=== PATIENT | male | born 1955 | race Caucasian/White ===

== ENCOUNTER 2017-03-24 09:49 | Emergency (ER) | payer BC ==
[~2017-03-24] VITALS: Ht 185.4 cm; Wt 124.7 kg
[~2017-03-24 09:49] MED LIST: ASPI-482 PO; ASPI81TA2; ATEN25TA; ATOR40TA59; BUPR300T3 PO; BUPR300T4; CEFD300C PO; DICL100T PO; DICL100T2; ESCI10TA; ESCI20TA10 PO; LEVO50TA5; LISI-334 PO; LISI-338; LISI10TA2 PO; METF500T4; METH4TAB6 PO; MULT-208 PO; SAXA5TAB PO; TAMS0.4C97 PO; TICA90TA PO; VENTOLIN HFA18 GM INH
[2017-03-24] MEDS ORDERED: NAPROXEN 500 MG TABLET PO STA (10:05)
[2017-03-24 10:14] VITALS: BP 173/81
[2017-03-24] MEDS ORDERED: DIPHTH,PERTUSS(ACELL),TET TOX 0.5 ML DISP.SYRIN. VAX IM ONE (10:15)
--- NOTE | 2017-03-24 10:27 | PHYS DOC ---
Past Medical History Past Medical History: Diabetes-Type II, High Cholesterol, Hypertension, Hypothyroid, [place] Past Surgical History: Knee Replacement, Other Additional Past Surgical Histo: hernia repair, cardiac stent 2013, carpal tunnel Additional Information: 1 ppd Alcohol Use: None Drug Use: None Adult General Chief Complaint Chief Complaint: THUMB HPI HPI Patient is a 61 year old male with history of hypertension, high cholesterol, diabetes type 2, who presents today with moderate left thumb pain that began today after he smashed his thumb with a sledge hummer, accidentally. Patient states he is a smoker. Review of Systems Review of Systems Constitutional: Denies fever or chills [] Eyes: Denies change in visual acuity, redness, or eye pain [] : Denies dysuria or hematuria [] Musculoskeletal: Left thumb injury Integument: Denies rash or skin lesions [] Neurologic: Denies headache, focal weakness or sensory changes [] Endocrine: Denies polyuria or polydipsia [] Current Medications Current Medications Current Medications Medications (Trade) Dose Ordered Sig/Geoffrey Start Time Stop Time Status Last Admin Dose Admin Diphtheria/ Tetanus/Acell Pertussis (Boostrix) 0.5 ml ONCE ONCE 03/24/17 10:15 03/24/17 10:16 DC 03/24/17 10:25 0.5 ML Naproxen (Naprosyn) 500 mg 1X STAT 03/24/17 10:05 03/24/17 10:07 DC 03/24/17 10:26 500 MG Neomycin/ Polymyxin/ Bacitracin (Triple Antibiotic Ointment) 1 pkt 1X ONCE 03/24/17 11:15 03/24/17 11:16 Allergies Allergies Allergies Coded Allergies Type Severity Reaction Last Updated Verified sitagliptin Allergy Intermediate Hives 11/10/16 Yes Physical Exam Physical Exam Constitutional: Well developed, well nourished, no acute distress, non-toxic appearance. [] HENT: Normocephalic, atraumatic, bilateral external ears normal, oropharynx moist, no oral exudates, nose normal. [] Eyes: PERRLA, EOMI, conjunctiva normal, no discharge. [] Skin: See extremity Back: No tenderness, no CVA tenderness. [] Extremities: Left lateral mid thumb with a skin flap laceration approximately 3 x 2 cm, there is no obvious tendon involvement. Full range of motion to the left thumb. Patient able to flex and extend the left thumb with no difficulties. +2 left radial pulse. Cap refill less than 2 seconds the left upper extremity. Sensation intact to the left upper extremity. Adequate radial sensation to the left thumb. Neurologic: Alert and oriented X 3, normal motor function, normal sensory function, no focal deficits noted. [] Psychologic: Affect normal, judgement normal, mood normal. [] Current Patient Data Vital Signs Vital Signs Date Time Temp Pulse Resp B/P (MAP) Pulse Ox O2 Delivery O2 Flow Rate FiO2 03/24/17 10:14 97.8 80 14 97 Room Air 97.8 EKG EKG [] Radiology/Procedures Radiology/Procedures []PROCEDURE: FINGER(S) LEFT Indication: Injury to the left thumb with a hammer. Time of exam 10:15 AM 3 views of the left thumb were obtained. The alignment is normal. There appears to be an ununited osteophyte at the interphalangeal joint. No fracture is seen. The phalanges and visualized first metacarpal are intact. Impression: No acute bony abnormality is detected. DICTATED and SIGNED BY: MIRZA BARRAZA MD DATE: 03/24/17 1024 CC: TANO GOOD APRN; DONTA VAN APRN; NON,STAFF ~ Course & Med Decision Making Course & Med Decision Making Pertinent Labs and Imaging studies reviewed. (See chart for details) Patient has left thumb contusion after hitting his thumb with a sledgehammer. Left thumb x-rays interpreted by radiologist are negative for any acute findings. There is a superficial laceration on the thumb from the injury that does not need stitches. He was given tetanus in the ED. Instructed to keep the area clean and dry. Neosporin recommended to the area. Provided return precautions. He is a smoker we encouraged him to consider smoking cessation. Dragon Disclaimer Dragon Disclaimer This electronic medical record was generated, in whole or in part, using a voice recognition dictation system. Departure Departure Impression: Primary Impression: Contusion of left thumb Additional Impressions: Laceration of left thumb Smoking addiction Disposition: 01 HOME, SELF-CARE Condition: STABLE Referrals: TANO GOOD APRN (PCP) Follow-up with your own doctor in 1-2 weeks. Patient Instructions: Contusion, Fingertip Laceration, Smoking Cessation, Smoking, You Can Quit, [id number] Additional Instructions: You were seen for left thumb contusion with a laceration on the thumb, your left thumb x-rays interpreted by radiologist are negative for any acute findings. Keep the laceration site clean and dry. Apply Neosporin to it twice a day. Monitor it for signs and symptoms of infection including increased redness warmth or odor drainage from the area and return to the ED if they occur. Follow -up with your own doctor in 1-2 weeks as needed. Consider smoking cessation. Problem Qualifiers Primary Impression: Contusion of left thumb Encounter type: initial encounter Damage to nail status: without damage Qualified Codes: S60.012A - Contusion of left thumb without damage to nail, initial encounter Additional Impressions: Laceration of left thumb Encounter type: initial encounter Qualified Codes: S61.012A - Laceration without foreign body of left thumb without damage to nail, initial encounter DONTA VAN APRN March 24, 2017 10:27
[2017-03-24] MEDS ORDERED: NEOMY/BACITR/POLYMYXIN OINT PACKET. TP ONE ×2 (10:56→11:15)
== END 2017-03-24 11:09 | disposition home or self-care (01) ==
LOC: ER 09:49
DX: S61.012A Laceration without foreign body of left thumb without damage to nail, initial encounter (principal); F17.200 Nicotine dependence, unspecified, uncomplicated; I10 Essential (primary) hypertension; E78.00 Pure hypercholesterolemia, unspecified; E11.9 Type 2 diabetes mellitus without complications; E03.9 Hypothyroidism, unspecified; Z95.5 Presence of coronary angioplasty implant and graft; Z88.8 Allergy status to other drugs, medicaments and biological substances; W23.0XXA Caught, crushed, jammed, or pinched between moving objects, initial encounter; Y93.89 Activity, other specified; Y92.89 Other specified places as the place of occurrence of the external cause; Y99.8 Other external cause status
CPT/HCPCS: 73140; 90471; 90715; 99284-25

== ENCOUNTER 2017-09-30 19:56 | Emergency (ER) | payer BC ==
[~2017-09-30] VITALS: Ht 185.4 cm; Wt 124.7 kg
[~2017-09-30 19:56] MED LIST changes: +ASPI-630; -ASPI81TA2; -DICL100T2; +DICL100T4; -ESCI10TA; -ESCI20TA10 PO; +ESCITALOPRAM OX10 MG; +LEXAPRO20 MG PO
[2017-09-30] MEDS ORDERED: FAMOTIDINE 20 MG/2 ML VIAL IVP ONE (20:45)
[2017-09-30] MEDS ORDERED: ONDANSETRON PF 4 MG/2 ML VIAL. IV ONE (20:45)
[2017-09-30] MEDS ORDERED: diphenhydrAMINE 50 MG/ML VIAL IVP ONE (20:45)
[2017-09-30] MEDS ORDERED: methylPREDNISolone SOD SUCC PF 125 MG/2 ML VIAL. IV ONE (20:45)
[2017-09-30 22:04] VITALS: BP 168/80
[2017-09-30] MEDS ORDERED: FAMO-63 PO (22:24)
[2017-09-30] MEDS ORDERED: PRED50TA PO (22:24)
--- NOTE | 2017-09-30 22:24 | PHYS DOC ---
Past Medical History Past Medical History: Diabetes-Type II, High Cholesterol, Hypertension, Hypothyroid, [place] Past Surgical History: Knee Replacement, Other Additional Past Surgical Histo: hernia repair, cardiac stent 2013, carpal tunnel Alcohol Use: None Drug Use: None Adult General Chief Complaint Chief Complaint: ALLERGIC REACTION HPI HPI 62-year-old male now presents to the emergency department after an evolving itching and hives. Patient handled some curtains that he has never touched before. He states these were very edi. He is a smoker but has never been formally diagnosed with COPD. Patient states he had no difficulty swallowing or voice changes but he didn't perceive that he was having some breathing issues. EMS gave him IM epinephrine and other than the hives and itching he's been asymptomatic since. No dizziness or near syncope. Review of Systems Review of Systems Constitutional: Denies fever or chills [] Eyes: Denies change in visual acuity, redness, or eye pain [] HENT: Denies nasal congestion or sore throat [] Respiratory: Denies cough or shortness of breath [] Cardiovascular: No additional information not addressed in HPI [] GI: Denies abdominal pain, nausea, vomiting, bloody stools or diarrhea [] : Denies dysuria or hematuria [] Musculoskeletal: Denies back pain or joint pain [] Integument: Denies rash or skin lesions [] Neurologic: Denies headache, focal weakness or sensory changes [] Endocrine: Denies polyuria or polydipsia [] All other systems were reviewed and found to be within normal limits, except as documented in this note. Current Medications Current Medications Current Medications Medications (Trade) Dose Ordered Sig/Geoffrey Start Time Stop Time Status Last Admin Dose Admin Diphenhydramine HCl (Benadryl) 25 mg 1X ONCE 09/30/17 20:45 09/30/17 20:46 DC 09/30/17 20:44 25 MG Famotidine (Pepcid Vial) 20 mg 1X ONCE 09/30/17 20:45 09/30/17 20:46 DC 09/30/17 20:43 20 MG Methylprednisolone Sodium Succinate (SOLU-Medrol 125MG VIAL) 125 mg 1X ONCE 09/30/17 20:45 09/30/17 20:46 DC 09/30/17 20:43 125 MG Ondansetron HCl (Zofran) 4 mg 1X ONCE 09/30/17 20:45 09/30/17 20:46 DC 09/30/17 20:43 4 MG Allergies Allergies Allergies Coded Allergies Type Severity Reaction Last Updated Verified sitagliptin Allergy Intermediate Hives 11/10/16 Yes Physical Exam Physical Exam Exophoria male no acute distress. He does have diffuse urticaria. Normal voice no stridor normal intraoral exam and oropharynx. No angioedema or soft tissue swelling. Clear lungs regular rate and rhythm no wheezing rales rubs or rhonchi. Remainder of exam is completely benign Constitutional: Well developed, well nourished, no acute distress, non-toxic appearance. [] HENT: Normocephalic, atraumatic, bilateral external ears normal, oropharynx moist, no oral exudates, nose normal. [] Eyes: PERRLA, EOMI, conjunctiva normal, no discharge. [] Neck: Normal range of motion, no tenderness, supple, no stridor. [] Cardiovascular:Heart rate regular rhythm, no murmur [] Lungs & Thorax: Bilateral breath sounds clear to auscultation [] Abdomen: Bowel sounds normal, soft, no tenderness, no masses, no pulsatile masses. [] Skin: Warm, dry, urticaria diffuse as above Back: No tenderness, no CVA tenderness. [] Extremities: No tenderness, no cyanosis, no clubbing, ROM intact, no edema. [] Neurologic: Alert and oriented X 3, normal motor function, normal sensory function, no focal deficits noted. [] Psychologic: Affect normal, judgement normal, mood normal. [] Current Patient Data Vital Signs Vital Signs Date Time Temp Pulse Resp B/P (MAP) Pulse Ox O2 Delivery O2 Flow Rate FiO2 09/30/17 22:04 70 18 168/80 (109) 95 Room Air 09/30/17 20:00 97.4 97.4 EKG EKG [] Radiology/Procedures Radiology/Procedures [] Course & Med Decision Making Course & Med Decision Making Pertinent Labs and Imaging studies reviewed. (See chart for details) Signs and symptoms consistent with generalized allergic reaction with urticaria and acute pruritus. Patient had questionable mild pulmonary symptoms for which she was given IM epi after which she was asymptomatic. He is a smoker and I suspect a possible contributory anxiety component manifesting in those mild symptoms, however there does exist the possibility of extremely mild anaphylaxis. Patient with no respiratory or airway symptoms in the emergency department during two-hour observation period he remained stable and his urticaria resolved. He is asymptomatic on reevaluation and feels well. Prescription for prednisone Linda. Patient aware to finish this as prescribed and take Benadryl and Pepcid as needed no further workup or treatment indicated patient agrees that outpatient follow-up and strict return precautions given.[] Dragon Disclaimer Dragon Disclaimer This electronic medical record was generated, in whole or in part, using a voice recognition dictation system. Departure Departure Impression: Primary Impression: Allergic reaction Additional Impression: Urticaria Disposition: HOME, SELF-CARE Condition: IMPROVED Referrals: TANO GOOD APRN (PCP) Patient Instructions: Hives Additional Instructions: It appears that you've had an allergic reaction to some component of the curtain she were handling or dust or other material which was in the fabric. You 've experienced hives as a result of your allergic reaction. Take Benadryl 50 mg every 4-6 hours well as Pepcid 20 mg twice a day as needed for rash or itching. Finish prednisone once a day for 5 more days starting tomorrow as prescribed. Follow-up with your doctor tomorrow for reevaluation and return immediately for new severe worsening symptoms, especially for symptoms of allergic reaction with airway involvement.. Discuss with your doctor whether or not to arrange outpatient allergy testing after your symptoms have resolved. Scripts Prednisone (PREDNISONE) 50 Mg Tablet 1 TAB PO DAILY, #5 TAB Prov: GAURAV CHRISTIAN MD 09/30/17 Famotidine (PEPCID) 20 Mg Tablet 20 MG PO BID Y for ALLERGIES, #14 TAB Prov: GAURAV CHRISTIAN MD 09/30/17 Problem Qualifiers GAURAV CHRISTIAN MD Sep 30, 2017 22:24
== END 2017-09-30 22:30 | disposition home or self-care (01) ==
LOC: ER 19:56
DX: T78.40XA Allergy, unspecified, initial encounter (principal); L50.9 Urticaria, unspecified; E11.9 Type 2 diabetes mellitus without complications; E03.9 Hypothyroidism, unspecified; E78.00 Pure hypercholesterolemia, unspecified; I10 Essential (primary) hypertension; Z95.5 Presence of coronary angioplasty implant and graft; Z88.8 Allergy status to other drugs, medicaments and biological substances; X58.XXXA Exposure to other specified factors, initial encounter
CPT/HCPCS: 96374; 96375; 99284; J1200; J2405; J2930; S0028

== ENCOUNTER → 2017-11-22 | Day surgery (SDC) | payer BC ==
[~2017-11-22] MED LIST changes: -ASPI-482 PO; -ASPI-630; -ATEN25TA; -ATOR40TA59; -BUPR300T3 PO; -BUPR300T4; -CEFD300C PO; -DICL100T PO; -DICL100T4; -ESCITALOPRAM OX10 MG; +HYDROmorphone 2 MG/ML VIAL IV; -LEVO50TA5; -LEXAPRO20 MG PO; +LIDOCAINE 1% PF 2 ML VIAL. ID; +LIDOCAINE 2% PF Vial for OR 5 ML VIAL.; -LISI-334 PO; -LISI-338; -LISI10TA2 PO; -METF500T4; -METH4TAB6 PO; +MIDAZOLAM HCL/PF 2 MG/2 ML VIAL.; +MORPHINE SULFATE 2 MG/ML DISP.SYRIN. IV; -MULT-208 PO; +ONDANSETRON PF 4 MG/2 ML VIAL.; +PROCHLORPERAZINE 10 MG/2 ML VIAL. IV; +PROPOFOL 20 ML IV; -SAXA5TAB PO; -TAMS0.4C97 PO; -TICA90TA PO; -VENTOLIN HFA18 GM INH; +fentaNYL PF VIAL 100 MCG/2 ML VIAL; +fentaNYL PF VIAL 100 MCG/2 ML VIAL IV
[2017-11-22 09:11] LABS: POC GLUCOSE 201 mg/dL (70-99)
[2017-11-22] MEDS: IV RINGERS,LACTATED 1000ML 1,000 ML IV (09:13)
[2017-11-22] MEDS: oxyCODONE/APAP 7.5/325 1 TAB TABLET PO (11:53)
[2017-11-22] MEDS: BUPIVACAINE MPF 0.5% 30 ML VIAL. (12:35)
== END | disposition home or self-care (01) ==
LOC: SURG 08:19
DX: L72.3 Sebaceous cyst (principal); E11.9 Type 2 diabetes mellitus without complications; I25.10 Atherosclerotic heart disease of native coronary artery without angina pectoris; E78.00 Pure hypercholesterolemia, unspecified; I10 Essential (primary) hypertension; E03.9 Hypothyroidism, unspecified; F32.9 Major depressive disorder, single episode, unspecified; Z87.39 Personal history of other diseases of the musculoskeletal system and connective tissue; Z86.39 Personal history of other endocrine, nutritional and metabolic disease; Z88.8 Allergy status to other drugs, medicaments and biological substances; Z72.0 Tobacco use
CPT/HCPCS: 11404; 82962; 87071; 87075; 87205; 88304; C1769; J0690; J2250; J2405; J2704; J3010; J3490

== ENCOUNTER → 2018-02-10 | Outpatient (CLI) | payer BC ==
[~2018-02-10] MED LIST changes: -HYDROmorphone 2 MG/ML VIAL IV; +IOHEXOL 240 MG/ML 50ML VIAL. PO; -LIDOCAINE 1% PF 2 ML VIAL. ID; -LIDOCAINE 2% PF Vial for OR 5 ML VIAL.; -MIDAZOLAM HCL/PF 2 MG/2 ML VIAL.; -MORPHINE SULFATE 2 MG/ML DISP.SYRIN. IV; -ONDANSETRON PF 4 MG/2 ML VIAL.; -PROCHLORPERAZINE 10 MG/2 ML VIAL. IV; -PROPOFOL 20 ML IV; -fentaNYL PF VIAL 100 MCG/2 ML VIAL; -fentaNYL PF VIAL 100 MCG/2 ML VIAL IV
[2018-02-10] MEDS: IOHEXOL 300 MG/ML 100ML VIAL. IV (10:20)
== END | disposition home or self-care (01) ==
LOC: CT 09:58
DX: N28.1 Cyst of kidney, acquired (principal)
CPT/HCPCS: 74177; Q9967

== ENCOUNTER → 2018-02-28 | Outpatient (CLI) | payer BC | END | disposition home or self-care (01) | LOC: US 13:46 | DX: I10 Essential (primary) hypertension (principal); N28.1 Cyst of kidney, acquired; I70.293 Other atherosclerosis of native arteries of extremities, bilateral legs | CPT/HCPCS: 76770; 93925 ==

== ENCOUNTER → 2018-06-09 | Outpatient (CLI) | payer BC | END | disposition home or self-care (01) | LOC: ECHO 10:37 | DX: I25.10 Atherosclerotic heart disease of native coronary artery without angina pectoris (principal); I51.7 Cardiomegaly; I10 Essential (primary) hypertension; E11.9 Type 2 diabetes mellitus without complications; E78.00 Pure hypercholesterolemia, unspecified; E03.9 Hypothyroidism, unspecified; Z87.891 Personal history of nicotine dependence; Z79.899 Other long term (current) drug therapy | CPT/HCPCS: 93306 ==

== ENCOUNTER → 2019-12-19 | Outpatient (CLI) | payer MEDICARE, OTHER ==
[2017-11-22 11:54] VITALS: BP 169/87
[~2019-12-19] MED LIST changes: +ASPI-482 PO; +ASPI-630; +ATEN25TA; +ATOR40TA59; +BUPR300T3 PO; +BUPR300T92; +CEFD300C PO; +DICL100T PO; +DICL100T68; +DOCU50CA9 PO; +ESCITALOPRAM OX10 MG; +FAMO-63 PO; -IOHEXOL 240 MG/ML 50ML VIAL. PO; +LEVO50TA5; +LEXAPRO20 MG PO; +LISI-334 PO; +LISI-338; +LISI10TA2 PO; +METF500T16; +METH4TAB6 PO; +MULT-208 PO; +OXYC1TAB19 PO; +PRED50TA PO; +SAXA5TAB PO; +TAMS0.4C97 PO; +TICA90TA PO; +VENTOLIN HFA18 GM INH
--- NOTE | 2019-12-19 17:26 | CARD ---
MR#: [id number] Date of Study: 12/19/2019 Ordering Physician: RUMA CANO, Referring Physician: RUMA CANO, Tech: Ira Nguyen APPROVED REPORT EXAM: Two-dimensional and M-mode echocardiogram with Doppler and color Doppler. Other Information Quality : AverageHR: 77bpm INDICATION Cardiac Disease: CAD RISK FACTORS Hypertension Hyperlipidemia Diabetes Smoking 2D DIMENSIONS RVDd3.2 (2.9-3.5cm)Left Atrium(2D)3.3 (1.6-4.0cm) IVSd1.3 (0.7-1.1cm)Aortic Root(2D)4.0 (2.0-3.7cm) LVDd5.3 (3.9-5.9cm)LVOT Diameter2.5 (1.8-2.4cm) PWd1.3 (0.7-1.1cm)LVDs3.2 (2.5-4.0cm) FS (%) 39.8 %SV94.0 ml LVEF(%)69.9 (>50%) Aortic Valve AoV Peak Mario.125.0cm/sAoV VTI23.5cm AO Peak GR.6.2mmHgLVOT Peak Mario.102.4cm/s AO Mean GR.4mmHgAVA (VMAX)3.98cm2 Mitral Valve MV E Hdknxpbb15.1cm/sMV DECEL [id number] MV A Xiaxxxse34.5cm/sE/A Ratio0.8 Pulmonary Valve PV Peak Cftimyhr99.3cm/s Tricuspid Valve TR P. Stpenyjf463iz/sRAP [id number] TR Peak Gr.46cmFfHJJP70ftHb LEFT VENTRICLE The left ventricle is normal size. There is moderate concentric left ventricular hypertrophy. The lef t ventricular systolic function is normal and the ejection fraction is within normal range. The Eject ion Fraction is 55-60%. There is normal LV segmental wall motion. Transmitral Doppler flow pattern is Grade I-abnormal relaxation pattern. RIGHT VENTRICLE The right ventricle is normal size. There is normal right ventricular wall thickness. The right ventr icular systolic function is normal. ATRIA The left atrium size is normal. The right atrium size is normal. The interatrial septum is intact wit h no evidence for an atrial septal defect or patent foramen ovale as noted on 2-D or Doppler imaging. AORTIC VALVE The aortic valve is normal in structure and function. Doppler and Color Flow revealed no significant aortic regurgitation. There is no significant aortic valvular stenosis. MITRAL VALVE The mitral valve is normal in structure and function. There is no evidence of mitral valve prolapse. There is no mitral valve stenosis. Doppler and Color Flow revealed no mitral valve regurgitation note d. TRICUSPID VALVE The tricuspid valve is normal in structure and function. Doppler and Color Flow revealed trace tricus pid regurgitation. There is no tricuspid valve prolapse or vegetation. There is no tricuspid valve st enosis. PULMONIC VALVE The pulmonic valve is not well visualized. Doppler and Color Flow revealed no pulmonic valvular regur gitation. There is no pulmonic valvular stenosis. GREAT VESSELS The aortic root is normal in size. The ascending aorta is normal in size. The IVC is normal in size a nd collapses >50% with inspiration. PERICARDIAL EFFUSION There is no evidence of significant pericardial effusion. Critical Notification Critical Value: No <Conclusion> The left ventricular systolic function is normal and the ejection fraction is within normal range. Th e Ejection Fraction is 55-60%. There is normal LV segmental wall motion. Signed by : Asael Stevenson, Electronically Approved : 12/19/2019 17:26:36
== END | disposition home or self-care (01) ==
LOC: ECHO 13:37
PROVIDERS: ATTEND Internal Medicine Cardiovascular Disease
DX: I51.7 Cardiomegaly (principal); I25.10 Atherosclerotic heart disease of native coronary artery without angina pectoris
CPT/HCPCS: 93306

== ENCOUNTER → 2020-01-08 | Outpatient (CLI) | payer MEDICARE, OTHER ==
[2017-11-22 11:54] VITALS: BP 169/87
[2020-01-08 08:12] LABS: CHOLESTEROL/HDL RATIO 4.7
--- NOTE | 2020-01-08 12:57 | RAD ---
MR#: [id number] Date of Study: 01/08/2020 Ordering Physician: RUMA CANO, Referring Physician: RUMA CANO, Tech: Alberto Palacio MBA, RDMS, RVT, RDCS, RTR APPROVED REPORT Patient Location: OUT-PATIENT Indications Rest Pain:Bilaterally VELOCITY AND DOPPLER WAVEFORM ANALYSIS RIGHT cm/secWaveformSeverity LEFT cm/secWaveform Severity dCFA 226.0TriphasicdCFA 123.0Triphasic Prof Fem Art. 111.0TriphasicProf Fem Art. 77.0Biphasic Fem Art Prox. 123.0TriphasicFem Art Prox. 131.0Triphasic Fem Art Mid. 127.0TriphasicFem Art Mid. 150.0Triphasic Fem Art Dist. 123.0TriphasicFem Art Dist. 77.0Triphasic Pop Art(Fossa) 80.0TriphasicPop Art(AK) 72.0Triphasic BESSEMER REGULATOR Prox. 113.0TriphasicPTA Prox. 92.0Triphasic BESSEMER REGULATOR Dist. 120.0TriphasicPTA Dist. 111.0Triphasic LAUREN Prox. 175.0TriphasicATA Prox. 87.0Biphasic DPA 54MonophasicDPA 20Monophasic Findings Grayscale images of the bilateral lower extremity arterial vessels demonstrate mild diffuse intimal h yperplasia and calcific plaque. Spectral waveforms are mildly elevated in the right common femoral artery suggestive of a moderate st enosis of approximately less than 50%. Normal velocities are triphasic wave pattern are noted to the popliteal segment. Below the knee the peroneal artery is not visualized and the posterior tibial cristy ry is patent. Probable greater than 50% stenosis involving the anterior tibial artery with monophasic waveforms in the dorsalis pedis vessels. On the left triphasic waveforms are noted from the common femoral artery to the popliteal segment. Be low the knee the peroneal artery is again not visualized with patent posterior tibial and anterior ti bial vessels. There is likely diffuse small vessel disease at the level of the dorsalis pedis artery. Critical Notification Critical Value: No <Conclusion> 1. No critical lower extremity arterial disease noted. Signed by : Asael Stevenson, Electronically Approved : 01/08/2020 12:57:25
== END | disposition home or self-care (01) ==
LOC: US 07:13
PROVIDERS: ATTEND Internal Medicine Cardiovascular Disease
DX: I70.293 Other atherosclerosis of native arteries of extremities, bilateral legs (principal); M89.372 Hypertrophy of bone, left ankle and foot; M89.371 Hypertrophy of bone, right ankle and foot; E78.5 Hyperlipidemia, unspecified
CPT/HCPCS: 36415; 80061; 93925

== ENCOUNTER 2020-11-20 16:01 | Inpatient (IN) | payer MEDICARE, OTHER ==
[~2020-11-20] VITALS: Ht 185.4 cm; Wt 118.9 kg
[~2020-11-20 16:01] MED LIST changes: -LISI-334 PO; -LISI-338; +LISI-517; +LISI10TA16 PO; -LISI10TA2 PO; +LISI20TA18 PO
[2020-11-20 16:22] LABS: BASO # 0.1 x10^3/uL (0.0-0.2); BASO % 1 % (0-3); EOS # 0.3 x10^3/uL (0.0-0.7); EOS % 3 % (0-3); HEMATOCRIT 33.5 % (39.0-53.0); HEMOGLOBIN 11.2 g/dL (13.0-17.5); LYMPH # 1.8 x10^3/uL (1.0-4.8); LYMPH % 17 % (24-48); MEAN CORPUSCULAR HEMOGLOBIN 29 pg (25-35); MEAN CORPUSCULAR HGB CONC 33 g/dL (31-37); MEAN CORPUSCULAR VOLUME 87 fL (79-100); MONO # 0.9 x10^3/uL (0.0-1.1); MONO % 8 % (0-9); NEUT # 7.7 x10^3/uL (1.8-7.7); NEUT % 71 % (31-73); PLATELET COUNT 260 x10^3/uL (140-400); RED BLOOD COUNT 3.86 x10^6/uL (4.30-5.70); RED CELL DISTRIBUTION WIDTH 15.3 % (11.5-14.5); WHITE BLOOD COUNT 10.9 x10^3/uL (4.0-11.0)
--- NOTE | 2020-11-20 16:23 | PHYS DOC ---
Past Medical History Past Medical History: Diabetes-Type II, High Cholesterol, Hypertension, H ypothyroid, VA (YIMI FRAGA RING PACKER) Past Surgical History: Knee Replacement, Other Additional Past Surgical Histo: hernia repair, cardiac stent 2013, carpal tunnel (YIMI FRAGA RING PACKER) Smoking Status: Current Every Day Smoker Alcohol Use: None Drug Use: None (YIMI FRAGA RING PACKER) General Adult EDM: Chief Complaint: UPPER EXTREMITY PAIN HPI: HPI: Patient is a 65 year old male who presents with 1 month of left shoulder pain into the upper arm that he states feels like a " pulling pain" and states that now it has gone down into the arm and sharp shooting into the hand. He states that he is a smoker and has chronic shortness of breath and is no worse than usual. He states he does not have any chest pain. He states he has been out of his metoprolol for the last 3 weeks. Patient's last echo was December 2019 and showed LVH but normal ejection fraction. Patient rates his pain a 2 out of 10. Nothing makes it worse or better. He states that he had injuries to that shoulder and its been out of socket before in the past but does not remember injuring it to cause any of this pain a month ago. Patient states for the last 1 to 2 months he has had dizziness but mostly when he goes to look up. Patient denies increase SOA, abdominal pain, nausea, vomiting, diarrhea, neck pain, back pain, fall, injury, numbness or tingling, focal weakness, vision changes, syncope. He denies any dizziness at this time. Patient does have a history of high cholesterol, diabetes, hypothyroidism, cardiac stents, CAD, VA, COPD, smoking, hypertension. (YIMI FRAGA RING PACKER) Review of Systems: Review of Systems: Constitutional: Denies fever or chills. [] Eyes: Denies change in visual acuity. [] HENT: Denies nasal congestion or sore throat. [] Respiratory: Denies cough or shortness of breath. [] Cardiovascular: Denies chest pain or edema. [] GI: Denies abdominal pain, nausea, vomiting, bloody stools or diarrhea. [] : Denies dysuria. [] Musculoskeletal: Denies back pain. + Left shoulder and arm joint pain. [] Integument: Denies rash. [] Neurologic: Denies headache, focal weakness or sensory changes. [] Endocrine: Denies polyuria or polydipsia. [] Lymphatic: Denies swollen glands. [] Psychiatric: Denies depression or anxiety. [] (YIMI FRAGA RING PACKER) Heart Score: HEART Score for Chest Pain: HEART Score for Chest Pain Response (Comments) Value History Slighlty/Non-Suspicious 0 ECG Nonspecific Repolarizatio 1 Age > 65 2 Risk Factors >3 Risk Factors or Hx CAD 2 Troponin < Normal Limit 0 Total 5 Risk Factors: Risk Factors: DM, Current or recent (<one month) smoker, HTN, HLP, family history of CAD, obesity. Risk Scores: Score 0 - 3: 2.5% MACE over next 6 weeks - Discharge Home Score 4 - 6: 20.3% MACE over next 6 weeks - Admit for Clinical Observation Score 7 - 10: 72.7% MACE over next 6 weeks - Early Invasive Strategies (YIMI FRAGA APRN) Allergies: Allergies: Allergies Coded Allergies Type Severity Reaction Last Updated Verified sitagliptin Allergy Intermediate Hives 11/19/17 Yes (YIMI FRAGA RING PACKER) Physical Exam: PE: Constitutional: Well developed, well nourished, no acute distress, non-toxic keon earance. [] HENT: Normocephalic, atraumatic, bilateral external ears normal, oropharynx moist, no oral exudates, nose normal. [] Eyes: PERRLA, EOMI, conjunctiva normal, no discharge. [] Neck: Normal range of motion, no tenderness, supple, no stridor. [] Cardiovascular:Heart rate regular rhythm, no murmur [] Lungs & Thorax: Bilateral upper breath sounds clear and lower diminished to auscultation [] Abdomen: Bowel sounds normal, soft, no tenderness, no masses, no pulsatile masses. [] Skin: Warm, dry, no erythema, no rash. [] Back: No tenderness, no CVA tenderness. [] Extremities: No tenderness, no cyanosis, no clubbing, ROM intact, no edema. [] Neurologic: Alert and oriented X 3, normal motor function, normal sensory function, no focal deficits noted. [] Psychologic: Affect normal, judgement normal, mood normal. [] (YIMI FRAGA APRN) EKG: EK and read by Dr. Hardin is sinus rhythm and no STEMI (YIMI FRAGA APRN) Radiology/Procedures: Radiology/Procedures: [] Impression: [place] [id number] IMAGING REPORT Signed PATIENT: ENRIQUE GILLESPIE ACCOUNT: [id number] : 1955 LOCATION: ER AGE: 65 SEX: M EXAM STATUS: REG ER ORD. PHYSICIAN: YIMI FRAGA APRN REASON: soa PROCEDURE: PORTABLE CHEST 1V EXAM: Chest, single view; shoulder, 3 views. HISTORY: Pain. Shortness of air. COMPARISON: 01/15/2016. FINDINGS: Chest: A frontal view of the chest is obtained. There is no infiltrate, pleural effusion or pneumothorax. The heart is normal in size. Left shoulder: 3 views of the left shoulder obtained. There is no fracture, dislocation or subluxation. IMPRESSION: No acute pulmonary or osseous finding. Electronically signed by: Rosi Medley MD (11/20/2020 5:13 PM) [id number] DICTATED and SIGNED BY: ROSI MEDLEY MD DATE: 11/20/20 [id number] [place] [id number] [place], [place] [id number] IMAGING REPORT Signed PATIENT: ENRIQUE GILLESPIE ACCOUNT: [id number] : 1955 LOCATION: ER AGE: 65 SEX: M EXAM STATUS: REG ER ORD. PHYSICIAN: YIMI FRAGA APRN REASON: PAIN PROCEDURE: SHOULDER 2+V LEFT EXAM: Chest, single view; shoulder, 3 views. HISTORY: Pain. Shortness of air. COMPARISON: 01/15/2016. FINDINGS: Chest: A frontal view of the chest is obtained. There is no infiltrate, pleural effusion or pneumothorax. The heart is normal in size. Left shoulder: 3 views of the left shoulder obtained. There is no fracture, dislocation or subluxation. IMPRESSION: No acute pulmonary or osseous finding. Electronically signed by: Rosi Medley MD (11/20/2020 5:13 PM) [id number] DICTATED and SIGNED BY: ROSI MEDLEY MD DATE: 11/20/20 [id number] 0 (YIMI FRAGA APRN) Course & Med Decision Making: Course & Med Decision Making Pertinent Labs and Imaging studies reviewed. (See chart for details) See HPI. Nystagmus present. Hypertensive in the 190s over 100s. Slightly tachycardic at 97. Lungs are clear in upper lobes and diminished in lower lobes. Skin pink warm and dry. Alert and oriented x4. Ambulatory with a steady gait. Speaks in full complete sentences. Full range of motion of the left shoulder. There is no joint laxity or deformity. No swelling of the joint. No redness to the joint. No tenderness to the joint. No heat to the joint. Radial pulse strong and present. Cap refill less than 2 seconds. Patient states he did not have this arm pain when he has had his VA in the past. States he sees Dr. Rucker for cardiology and saw him about 4 months ago. I spoke to Dr. Leon for admission. Due to the patient's past medical history and renal insufficiency that is new onset patient will be admitted to the hospital. He can have another echo or further evaluation from cardiology. [] (YIMI FRAGA APRN) Dragon Disclaimer: Dragon Disclaimer: This electronic medical record was generated, in whole or in part, using a voice recognition dictation system. (YIMI FRAGA APRN) Departure Departure Impression: Primary Impression: Left arm pain Additional Impression: Acute renal insufficiency Disposition: ADMITTED INPT THIS HOSP Admitting Physician: GABBI (YIMI FRAGA APRN) Condition: STABLE Referrals: MAYO CUBA (PCP) Attending Signature Attending Signature I have reviewed the PA/GYN PHYSICIAN's note and plan of care. I was available for consultation as needed during the patient's visit in the emergency department. I agree with the clinical impression, plan, and disposition. (GAURAV HARDIN DO) YIMI FRAGA APRN Nov 20, 2020 16:23 GAURAV HARDIN DO Nov 21, 2020 10:18
[2020-11-20 16:36] LABS: PROTHROMBIN TIME PATIENT 12.8 SEC (11.7-14.0)
[2020-11-20 16:43] LABS: CALCIUM 9.7 mg/dL (8.5-10.1); CREATININE 2.1 mg/dL (0.7-1.3); GFR 31.7; POTASSIUM 4.8 mmol/L (3.5-5.1)
[2020-11-20 16:48] LABS: ALBUMIN 3.7 g/dL (3.4-5.0); TOTAL BILIRUBIN 0.4 mg/dL (0.2-1.0); TOTAL PROTEIN 7.4 g/dL (6.4-8.2)
--- NOTE | 2020-11-20 17:16 | RAD ---
EXAM: Chest, single view; shoulder, 3 views. HISTORY: Pain. Shortness of air. COMPARISON: 01/15/2016. FINDINGS: Chest: A frontal view of the chest is obtained. There is no infiltrate, pleural effusion or pneumothorax. The heart is normal in size. Left shoulder: 3 views of the left shoulder obtained. There is no fracture, dislocation or subluxatio n. IMPRESSION: No acute pulmonary or osseous finding. Electronically signed by: Rosi Samaniego MD (11/20/2020 5:13 PM) [id number]
--- NOTE | 2020-11-20 17:24 | EKG ---
[facility] [address] [place] [address] Test Date: 2020-11-20 Test Time: 16:11:11 Pat Name: ENRIQUE GILLESPIE Department: Room: Gender: M Sensitized [employer] Tester: : 1955 Requested By: YIMI FRAGA Order Number: [id number] Reading MD: Measurements Intervals [place] Rate: 97 P: 43 MO: 176 QRS: 12 QRSD: 80 T: 73 QT: 306 QTc: 392 Interpretive Statements SINUS RHYTHM QRS(T) CONTOUR ABNORMALITY CONSIDER ANTEROLATERAL MYOCARDIAL DAMAGE POSSIBLY ABNORMAL ECG RI6.01 No previous ECG available for comparison
[2020-11-20] MEDS ORDERED: IV NORMAL SALINE 1000ML BAG 1,000 ML IV ONE (18:00)
[2020-11-20 18:13] LABS: BARBITURATES NEG (NEG); BENZODIAZEPINES NEG (NEG); CANNABINOIDS NEG (NEG); COCAINE NEG (NEG); METHADONE NEG (NEG); OPIATES NEG (NEG); PHENCYCLIDINE NEG (NEG)
[2020-11-20] MEDS ORDERED: ONDANSETRON PF 4 MG/2 ML VIAL. IV PRN (18:15)
[2020-11-20] MEDS ORDERED: DOCUSATE SODIUM 100 MG CAPSULE. PO PRN (18:15)
[2020-11-20] MEDS ORDERED: ALBUTEROL SULFATE 2.5 MG/3 ML NEBU. NEB PRN (18:15)
[2020-11-20] MEDS ORDERED: LORazepam 0.5 MG TABLET PO PRN (18:15)
[2020-11-20] MEDS ORDERED: guaiFENesin ORAL 200 MG/10 ML LIQUID. PO PRN (18:15)
[2020-11-20] MEDS ORDERED: DEXTROSE 50% 25 GM / 50ML DISP.SYRIN. IV PRN (18:15)
[2020-11-20] MEDS ORDERED: ZOLPIDEM 5 MG TABLET. PO PRN (18:15)
[2020-11-20] MEDS ORDERED: ACETAMINOPHEN 325 MG TABLET. PO PRN (18:15)
[2020-11-20 18:16] LABS: AMPHETAMINE/METHAMPHETAMINE NEG (NEG)
--- NOTE | 2020-11-20 19:07 | PDOC1 ---
History and Physical Date of Admission Date of Admission 11/20/2020 Identification/Chief Complaint Chief Complaint My shoulder hurts Source Source: Chart review, Patient History of Present Illness History of Present Illness Patient is a 65 year old male with past medical history of essential hypertension diabetes type 2 PCI and stent approximately 5 years ago who was in his usual state of health until about a month ago when he started complaining of left shoulder pain. The patient denies any trauma to the affected area the patient denies any recent changes to his activity level no heavy objects have been lifted and he has not engaged in a new exercise program. Patient says that he feels some tingling radiating from his neck down to his arm. Sensation of electric shock, the patient does not refer precordial pain no angina type of symptoms when the pain a flex him he rates it at a 8 out of 10 lasting less than 5 minutes with associated diaphoresis but no sensation of impending doom no nausea no vomiting associated with the symptoms. The other symptom that he also associates with this discomfort is feeling lightheaded especially when going from the sitting position to the up port position. He denies paroxysmal nocturnal dyspnea no orthopnea no peripheral edema no odynophagia no dysphagia no slurred speech no blurred vision no headaches were reported by the patient either. The patient denies any recent travels no neck stiffness no meningeal signs. Serendipitously he was found to have an increased creatinine level reason why he was admitted for observation. The patient has been taking some aspirin and meloxicam at home for this discomfort but it does not sound like he has been abusing the medication. Plan of care has been explained in detail and the laboratory data has been also explained in detail to the patient. All of his concerns were addressed to the best of my abilities His heart score was calculated in the emergency department he has a score of 5 reason why we were asked to admit and rule him out as well and even though he denies any chest discomfort Past Medical History Cardiovascular: CAD, HTN, Hyperlipidemia Endocrine: Diabetes Past Surgical History Past Surgical History: Total knee replacement Family History Family History: No Significant Social History Smoke: No ALCOHOL: none Drugs: None Current Problem List Problem List Problems Medical Problems: (1) Acute renal insufficiency Status: Acute (2) Left arm pain Status: Acute Current Medications Current Medications Current Medications Medications (Trade) Dose Ordered Sig/Geoffrey Start Time Stop Time Status Last Admin Dose Admin Acetaminophen (Tylenol) 650 mg PRN Q4HRS PRN 11/20/20 18:15 Albuterol Sulfate (Ventolin Neb Soln) 2.5 mg RTQID 11/20/20 20:00 Aspirin (Ecotrin) 81 mg DAILY 11/21/20 09:00 Atenolol (Tenormin) 25 mg DAILY 11/21/20 09:00 Atorvastatin Calcium (Lipitor) 40 mg HS 11/20/20 21:00 Bupropion HCl (Wellbutrin Xl) 300 mg DAILY 11/21/20 09:00 Citalopram Hydrobromide (CeleXA) 80 mg DAILY 11/21/20 09:00 Dextrose (Dextrose 50%-Water Syringe) 12.5 gm PRN Q15MIN PRN 11/20/20 18:15 Docusate Sodium (Colace) 100 mg PRN BID PRN 11/20/20 18:15 Enoxaparin Sodium (Lovenox 40mg Syringe) 40 mg Q24H 11/20/20 19:00 Guaifenesin (Robitussin) 200 mg PRN Q4HRS PRN 11/20/20 18:15 Insulin Human Lispro (HumaLOG) 0-7 UNITS TIDWMEALS 11/21/20 08:00 Levothyroxine Sodium (Synthroid) 50 mcg DAILY06 11/21/20 06:00 Lisinopril (Prinivil) 20 mg DAILY 11/21/20 09:00 Lorazepam (Ativan) 0.5 mg PRN Q4HRS PRN 11/20/20 18:15 Multivitamins (Thera M Plus) 1 tab DAILY 11/21/20 09:00 Non-Formulary Medication (Albuterol Sulfate (Ventolin Hfa Inhaler)) 2 puff QID 11/20/20 21:00 11/20/20 18:36 DC Ondansetron HCl (Zofran) 4 mg PRN Q4HRS PRN 11/20/20 18:15 Oxycodone/ Acetaminophen (Percocet 7.5/ 325) 1 tab Q4HRS 11/20/20 20:00 Sodium Chloride 1,000 ml @ 1,000 mls/hr 1X ONCE 11/20/20 18:00 11/20/20 18:59 DC 11/20/20 18:00 1,000 MLS/HR Zolpidem Tartrate (Ambien) 5 mg PRN QHS PRN 11/20/20 18:15 Allergies Allergies Allergies Coded Allergies Type Severity Reaction Last Updated Verified sitagliptin Allergy Intermediate Hives 11/19/17 Yes ROS Review of System CONSTITUTIONAL: No fever or chills EYES: No recent changes SKIN: No rash or itching CARDIOVASCULAR: No chest pain, syncope, palpitations, or edema RESPIRATORY: No SOB or cough GASTROINTESTINAL: No nausea, vomiting or abdominal pain NEUROLOGICAL: No headaches or weakness ENDOCRINE: No cold or heat intolerance GENITOURINARY: No urgency or frequency of urination MUSCULOSKELETAL: No back pain or joint pain LYMPHATICS: No enlarged lymph nodes PSYCHIATRIC: No anxiety or depression Physical Exam Physical Exam GEN.: No apparent distress. Alert and oriented. HEENT: Head is normocephalic, atraumatic NECK: Supple. LUNGS: Clear to auscultation. HEART: RRR, S1, S2 present. Peripheral pulses intact ABDOMEN: Soft, nontender. Positive bowel sounds. EXTREMITIES: Without any cyanosis. NEUROLOGIC: Normal speech, normal tone PSYCHIATRIC: Normal affect, normal mood. SKIN: No ulcerations Vitals Vitals Vital Signs Date Time Temp Pulse Resp B/P (MAP) Pulse Ox O2 Delivery O2 Flow Rate FiO2 11/20/20 17:30 98 149/69 (95) 97 Room Air 11/20/20 16:05 97.6 16 97.6 Labs Labs Laboratory Tests Test 11/20/20 16:16 11/20/20 17:55 White Blood Count 10.9 x10^3/uL (4.0-11.0) Red Blood Count 3.86 x10^6/uL (4.30-5.70) Hemoglobin 11.2 g/dL (13.0-17.5) Hematocrit 33.5 % (39.0-53.0) Mean Corpuscular Volume 87 fL (79-100) Mean Corpuscular Hemoglobin 29 pg (25-35) Mean Corpuscular Hemoglobin Concent 33 g/dL (31-37) Red Cell Distribution Width 15.3 % (11.5-14.5) Platelet Count 260 x10^3/uL (140-400) Neutrophils (%) (Auto) 71 % (31-73) Lymphocytes (%) (Auto) 17 % (24-48) Monocytes (%) (Auto) 8 % (0-9) Eosinophils (%) (Auto) 3 % (0-3) Basophils (%) (Auto) 1 % (0-3) Neutrophils # (Auto) 7.7 x10^3/uL (1.8-7.7) Lymphocytes # (Auto) 1.8 x10^3/uL (1.0-4.8) Monocytes # (Auto) 0.9 x10^3/uL (0.0-1.1) Eosinophils # (Auto) 0.3 x10^3/uL (0.0-0.7) Basophils # (Auto) 0.1 x10^3/uL (0.0-0.2) Prothrombin Time 12.8 SEC (11.7-14.0) Prothromb Time International Ratio 1.0 (0.8-1.1) Sodium Level 135 mmol/L (136-145) Potassium Level 4.8 mmol/L (3.5-5.1) Chloride Level 100 mmol/L (98-107) Carbon Dioxide Level 23 mmol/L (21-32) Anion Gap 12 (6-14) Blood Urea Nitrogen 32 mg/dL (8-26) Creatinine 2.1 mg/dL (0.7-1.3) Estimated GFR (Cockcroft-Gault) 31.7 BUN/Creatinine Ratio 15 (6-20) Glucose Level 321 mg/dL (70-99) Calcium Level 9.7 mg/dL (8.5-10.1) Total Bilirubin 0.4 mg/dL (0.2-1.0) Aspartate Amino Transf (AST/SGOT) 18 U/L (15-37) Alanine Aminotransferase (ALT/SGPT) 26 U/L (16-63) Alkaline Phosphatase 95 U/L (46-116) Troponin I Quantitative < 0.017 ng/mL (0.000-0.055) WX-Ldx-F-Type Natriuretic Peptide 11 pg/mL (0-124) Total Protein 7.4 g/dL (6.4-8.2) Albumin 3.7 g/dL (3.4-5.0) Albumin/Globulin Ratio 1.0 (1.0-1.7) Thyroid Stimulating Hormone (TSH) 2.753 uIU/mL (0.358-3.74) Urine Opiates Screen Neg (NEG) Urine Methadone Screen Neg (NEG) Urine Barbiturates Neg (NEG) Urine Phencyclidine Screen Neg (NEG) Urine Amphetamine/Methamphetamine Neg (NEG) Urine Benzodiazepines Screen Neg (NEG) Urine Cocaine Screen Neg (NEG) Urine Cannabinoids Screen Neg (NEG) Urine Ethyl Alcohol Neg (NEG) Laboratory Tests Test 11/20/20 16:16 11/20/20 17:55 White Blood Count 10.9 x10^3/uL (4.0-11.0) Red Blood Count 3.86 x10^6/uL (4.30-5.70) Hemoglobin 11.2 g/dL (13.0-17.5) Hematocrit 33.5 % (39.0-53.0) Mean Corpuscular Volume 87 fL (79-100) Mean Corpuscular Hemoglobin 29 pg (25-35) Mean Corpuscular Hemoglobin Concent 33 g/dL (31-37) Red Cell Distribution Width 15.3 % (11.5-14.5) Platelet Count 260 x10^3/uL (140-400) Neutrophils (%) (Auto) 71 % (31-73) Lymphocytes (%) (Auto) 17 % (24-48) Monocytes (%) (Auto) 8 % (0-9) Eosinophils (%) (Auto) 3 % (0-3) Basophils (%) (Auto) 1 % (0-3) Neutrophils # (Auto) 7.7 x10^3/uL (1.8-7.7) Lymphocytes # (Auto) 1.8 x10^3/uL (1.0-4.8) Monocytes # (Auto) 0.9 x10^3/uL (0.0-1.1) Eosinophils # (Auto) 0.3 x10^3/uL (0.0-0.7) Basophils # (Auto) 0.1 x10^3/uL (0.0-0.2) Prothrombin Time 12.8 SEC (11.7-14.0) Prothromb Time International Ratio 1.0 (0.8-1.1) Sodium Level 135 mmol/L (136-145) Potassium Level 4.8 mmol/L (3.5-5.1) Chloride Level 100 mmol/L (98-107) Carbon Dioxide Level 23 mmol/L (21-32) Anion Gap 12 (6-14) Blood Urea Nitrogen 32 mg/dL (8-26) Creatinine 2.1 mg/dL (0.7-1.3) Estimated GFR (Cockcroft-Gault) 31.7 BUN/Creatinine Ratio 15 (6-20) Glucose Level 321 mg/dL (70-99) Calcium Level 9.7 mg/dL (8.5-10.1) Total Bilirubin 0.4 mg/dL (0.2-1.0) Aspartate Amino Transf (AST/SGOT) 18 U/L (15-37) Alanine Aminotransferase (ALT/SGPT) 26 U/L (16-63) Alkaline Phosphatase 95 U/L (46-116) Troponin I Quantitative < 0.017 ng/mL (0.000-0.055) RX-Klu-J-Type Natriuretic Peptide 11 pg/mL (0-124) Total Protein 7.4 g/dL (6.4-8.2) Albumin 3.7 g/dL (3.4-5.0) Albumin/Globulin Ratio 1.0 (1.0-1.7) Thyroid Stimulating Hormone (TSH) 2.753 uIU/mL (0.358-3.74) Urine Opiates Screen Neg (NEG) Urine Methadone Screen Neg (NEG) Urine Barbiturates Neg (NEG) Urine Phencyclidine Screen Neg (NEG) Urine Amphetamine/Methamphetamine Neg (NEG) Urine Benzodiazepines Screen Neg (NEG) Urine Cocaine Screen Neg (NEG) Urine Cannabinoids Screen Neg (NEG) Urine Ethyl Alcohol Neg (NEG) Images Images [facility] [address] [place], [place] [id number] IMAGING REPORT Signed PATIENT: ENRIQUE GILLESPIE ACCOUNT: [id number] : 1955 LOCATION: ER AGE: 65 SEX: M EXAM STATUS: REG ER ORD. PHYSICIAN: YIMI FRAGA APRN REASON: soa PROCEDURE: PORTABLE CHEST 1V EXAM: Chest, single view; shoulder, 3 views. HISTORY: Pain. Shortness of air. COMPARISON: 01/15/2016. FINDINGS: Chest: A frontal view of the chest is obtained. There is no infiltrate, pleural effusion or pneumothorax. The heart is normal in size. Left shoulder: 3 views of the left shoulder obtained. There is no fracture, dislocation or subluxation. IMPRESSION: No acute pulmonary or osseous finding. Electronically signed by: Rosi Medley MD (11/20/2020 5:13 PM) [id number] DICTATED and SIGNED BY: ROSI MEDLEY MD DATE: 11/20/20 [id number] [facility] [address] [place] [address] IMAGING REPORT Signed PATIENT: ENRIQUE GILLESPIE ACCOUNT: [id number] : 1955 LOCATION: ER AGE: 65 SEX: M EXAM STATUS: REG ER ORD. PHYSICIAN: YIMI FRAGA APRN REASON: PAIN PROCEDURE: SHOULDER 2+V LEFT EXAM: Chest, single view; shoulder, 3 views. HISTORY: Pain. Shortness of air. COMPARISON: 01/15/2016. FINDINGS: Chest: A frontal view of the chest is obtained. There is no infiltrate, pleural effusion or pneumothorax. The heart is normal in size. Left shoulder: 3 views of the left shoulder obtained. There is no fracture, dislocation or subluxation. IMPRESSION: No acute pulmonary or osseous finding. Electronically signed by: Rosi Medley MD (11/20/2020 5:13 PM) [id number] VTE Prophylaxis Ordered VTE Prophylaxis Devices: No VTE Pharmacological Prophylaxi: Yes Assessment/Plan Assessment/Plan Acute renal failure secondary to most likely vasomotor etiology Left arm pain Chest pain equivalent with a heart score of 5 History of CAD status post PCI and stent approximately 5 years ago History of essential hypertension History of diabetes mellitus type 2 uncontrolled with his last hemoglobin A1c being in about the 9 range History of hypothyroidism Tobacco abuse Plan We will order an echocardiogram Follow trend of troponin as requested by the emergency department physician, very low suspicion for cardiac event given his benign history and laboratory data We will do urine electrolytes and urine creatinine We will do urine eosinophils Renal ultrasound Resume home medication Further recommendations based on clinical course DVT prophylaxis with Lovenox Justifications for Admission Other Justification Acute renal failure TENISHA LOJA MD Nov 20, 2020 19:07
[2020-11-20] MEDS: oxyCODONE/APAP 7.5/325 1 TAB TABLET PO SCH (20:00)
[2020-11-20 20:10] VITALS: BP 145/68
[2020-11-20] MEDS: ALBUTEROL SULFATE 2.5 MG/3 ML NEBU. NEB SCH (20:34)
[2020-11-20] MEDS ORDERED: NON FORMULARY ITEM (Albuterol Sulfate (Ventolin Hfa Inhaler) 2 PUFF) INH SCH (21:00)
[2020-11-20] MEDS: ATORVASTATIN CALCIUM 40 MG TABLET. PO SCH (22:04)
[2020-11-20] MEDS: ENOXAPARIN 40 MG/0.4 ML SYRINGE. SQ SCH (22:04)
[2020-11-20 23:00] VITALS: BP 110/50
[2020-11-21 03:00] VITALS: BP 134/72
[2020-11-21] MEDS: oxyCODONE/APAP 7.5/325 1 TAB TABLET PO SCH ×4 (04:00→12:00)
[2020-11-21 09:00] VITALS: BP 124/70
[2020-11-21] MEDS: buPROPion XL 150 MG TAB.ER.24H. PO SCH (09:17)
[2020-11-21] MEDS: LISINOPRIL 20 MG TABLET PO SCH (09:17)
[2020-11-21] MEDS: LEVOTHYROXINE 50 MCG TABLET PO SCH (09:17)
[2020-11-21] MEDS: MULTIVITAMIN with MINERAL TABLET. PO SCH (09:17)
[2020-11-21] MEDS: ASPIRIN ENTERIC COATED 81 MG TABLET.DR. PO SCH (09:17)
[2020-11-21] MEDS: ATENOLOL 25 MG TABLET. PO SCH (09:18)
[2020-11-21] MEDS: CITALOPRAM 20 MG TABLET. PO SCH (09:18)
[2020-11-21] MEDS: INSULIN LISPRO 300 UNITS/3 ML VIAL. SQ SCH ×3 (09:23→17:45)
[2020-11-21] MEDS: ALBUTEROL SULFATE 2.5 MG/3 ML NEBU. NEB SCH ×4 (09:31→20:59)
--- NOTE | 2020-11-21 09:43 | PDOC2 ---
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 Apparently he has been having issues with this but got worse and became more persistent after his fall about 1.5 weeks ago. Reports that he was standing on the couch trying to hang a curtain when he lost his balance and fell left side. No SOA or palpitations. Described left arm discomfort as his left upper arm like squeezing sometimes and tingling to his fingers. He does have CTS with release in the past as well as ulnar entrapment with release. I manipulated his neck did some ROM and this reproduce the discomfort in his arm and also positive for tenderness with palpation to his trapezius and inner left arm. No nausea or vomiting. Daughter thinks he has been fatigue but no direct chest pain. No limited ROM to left shoulder but at some positions his discomfort becomes more obvious. PAST MEDICAL HISTORY Cardiovascular: CAD ( s/p PCI/VIRGILIO to LAD, [facility] on 11/10/16 showing widely patent stent in the LAD and chronic total occlusion involving RC.), HTN, Hyperlipidemia Pulmonary: COPD (?), Other (GUILHERME uses CPAP) CENTRAL NERVOUS SYSTEM: Carpal Tunnel Syndrome GI: GERD Psych: Depression Musculoskeletal: Osteoarthritis Renal/: Other (urinary retention) Endocrine: Diabetes (2), Hypothyroidism PAST SURGICAL HISTORY Past Surgical History: Hernia Repair (bilateral inguinal), Other (PCI; CTS release; elbow sugery, right thigh mass removal) FAMILY HISTORY Family History noncontributory SOCIAL HISTORY Smoke: <1 pack per day ALCOHOL: none Drugs: None Lives: Alone CURRENT MEDICATIONS CURRENT MEDICATIONS Current Medications Medications (Trade) Dose Ordered Sig/Geoffrey Route PRN Reason Start Time Stop Time Status Last Admin Dose Admin Sodium Chloride 1,000 ml @ 1,000 mls/hr 1X ONCE IV 11/20/20 18:00 11/20/20 18:59 DC 11/20/20 18:00 Enoxaparin Sodium (Lovenox 40mg Syringe) 40 mg Q24H SQ 11/20/20 19:00 11/20/20 22:04 Aspirin (Ecotrin) 81 mg DAILY PO 11/21/20 09:00 11/21/20 09:17 Atenolol (Tenormin) 25 mg DAILY PO 11/21/20 09:00 11/21/20 09:18 Atorvastatin Calcium (Lipitor) 40 mg HS PO 11/20/20 21:00 11/20/20 22:04 Levothyroxine Sodium (Synthroid) 50 mcg DAILY06 PO 11/21/20 06:00 11/21/20 09:17 Lisinopril (Prinivil) 20 mg DAILY PO 11/21/20 09:00 11/21/20 09:17 Bupropion HCl (Wellbutrin Xl) 300 mg DAILY PO 11/21/20 09:00 11/21/20 09:17 Citalopram Hydrobromide (CeleXA) 80 mg DAILY PO 11/21/20 09:00 11/21/20 09:18 Multivitamins (Thera M Plus) 1 tab DAILY PO 11/21/20 09:00 11/21/20 09:17 Insulin Human Lispro (HumaLOG) 0-7 UNITS TIDWMEALS SQ 11/21/20 08:00 11/21/20 09:23 Albuterol Sulfate (Ventolin Neb Soln) 2.5 mg RTQID NEB 11/20/20 20:00 11/20/20 20:34 ALLERGIES ALLERGIES: Coded Allergies: sitagliptin (Verified Allergy, Intermediate, Hives, 11/19/17) ROS Review of System 14 point ROS evaluated with pertinent positives noted per HPI PHYSICAL EXAM General: Alert, Oriented X3, Cooperative, No acute distress HEENT: Atraumatic, Mucous membr. moist/pink Lungs: Clear to auscultation, Normal air movement Heart: Regular rate (SR), Normal S1, Normal S2, No murmurs Abdomen: Soft, No tenderness Extremities: No cyanosis, No edema Skin: No significant lesion Neuro: Normal speech, Sensation intact Psych/Mental Status: Mental status NL, Mood NL MUSCULOSKELETAL: Osteoarthritic changes both hands VITALS/I&O VITALS/I&O: Vital Signs Date Time Temp Pulse Resp B/P (MAP) Pulse Ox O2 Delivery O2 Flow Rate FiO2 11/21/20 09:18 101 124/70 11/21/20 03:00 97.5 16 96 97.5 11/20/20 20:04 Room Air I & O 11/20/20 11/20/20 11/21/20 15:00 23:00 07:00 Intake Total 1000 ml Balance 1000 ml LABS Lab: Laboratory Tests Test 11/20/20 16:16 11/20/20 17:55 11/20/20 20:02 11/20/20 21:25 White Blood Count 10.9 x10^3/uL (4.0-11.0) Red Blood Count 3.86 x10^6/uL (4.30-5.70) L Hemoglobin 11.2 g/dL (13.0-17.5) L Hematocrit 33.5 % (39.0-53.0) L Mean Corpuscular Volume 87 fL (79-100) Mean Corpuscular Hemoglobin 29 pg (25-35) Mean Corpuscular Hemoglobin Concent 33 g/dL (31-37) Red Cell Distribution Width 15.3 % (11.5-14.5) H Platelet Count 260 x10^3/uL (140-400) Neutrophils (%) (Auto) 71 % (31-73) Lymphocytes (%) (Auto) 17 % (24-48) L Monocytes (%) (Auto) 8 % (0-9) Eosinophils (%) (Auto) 3 % (0-3) Basophils (%) (Auto) 1 % (0-3) Neutrophils # (Auto) 7.7 x10^3/uL (1.8-7.7) Lymphocytes # (Auto) 1.8 x10^3/uL (1.0-4.8) Monocytes # (Auto) 0.9 x10^3/uL (0.0-1.1) Eosinophils # (Auto) 0.3 x10^3/uL (0.0-0.7) Basophils # (Auto) 0.1 x10^3/uL (0.0-0.2) Prothrombin Time 12.8 SEC (11.7-14.0) Prothrombin Time INR 1.0 (0.8-1.1) Sodium Level 135 mmol/L (136-145) L Potassium Level 4.8 mmol/L (3.5-5.1) Chloride Level 100 mmol/L (98-107) Carbon Dioxide Level 23 mmol/L (21-32) Anion Gap 12 (6-14) Blood Urea Nitrogen 32 mg/dL (8-26) H Creatinine 2.1 mg/dL (0.7-1.3) H Estimated GFR (Cockcroft-Gault) 31.7 BUN/Creatinine Ratio 15 (6-20) Glucose Level 321 mg/dL (70-99) H Calcium Level 9.7 mg/dL (8.5-10.1) Total Bilirubin 0.4 mg/dL (0.2-1.0) Aspartate Amino Transferase (AST) 18 U/L (15-37) Alanine Aminotransferase (ALT) 26 U/L (16-63) Alkaline Phosphatase 95 U/L (46-116) Troponin I Quantitative < 0.017 ng/mL (0.000-0.055) < 0.017 ng/mL (0.000-0.055) IC-Zpi-Y-Type Natriuretic Peptide 11 pg/mL (0-124) Total Protein 7.4 g/dL (6.4-8.2) Albumin 3.7 g/dL (3.4-5.0) Albumin/Globulin Ratio 1.0 (1.0-1.7) Thyroid Stimulating Hormone (TSH) 2.753 uIU/mL (0.358-3.74) Urine Opiates Screen Neg (NEG) Urine Methadone Screen Neg (NEG) Urine Barbiturates Neg (NEG) Urine Phencyclidine Screen Neg (NEG) Urine Amphetamine/Methamphetamine Neg (NEG) Urine Benzodiazepines Screen Neg (NEG) Urine Cocaine Screen Neg (NEG) Urine Cannabinoids Screen Neg (NEG) Urine Ethyl Alcohol Neg (NEG) Glucose (Fingerstick) 283 mg/dL (70-99) H Test 11/20/20 22:20 11/21/20 09:05 Troponin I Quantitative < 0.017 ng/mL (0.000-0.055) Glucose (Fingerstick) 195 mg/dL (70-99) H Laboratory Tests 11/20/20 16:16 Laboratory Tests 11/20/20 16:16 ECHOCARDIOGRAM ECHOCARDIOGRAM <Conclusion> The left ventricular systolic function is normal and the ejection fraction is within normal range. The Ejection Fraction is 55-60%. There is normal LV segmental wall motion. DATE: 12/19/19 1639 STRESS TEST STRESS TEST Conclusion 1. Regadenoson cardioisotope stress test did not show any evidence of ischemia or infarct. 2. Normal left ventricular systolic function with ejection fraction calculated at 65%. 3. Low risk for cardiac events. DATE: 11/18/18 1103 ASSESSMENT/PLAN ASSESSMENT/PLAN 1. Left arm pain: suspect cervial issues. Doubt ACS 2. CAD: prior stents. EF and WM nml. Clinically stable 3. SAMMY: possibly from NSAIDs and DM2 with dehydration 4. HTN: controlled 5. HLP 6. DM2 with DLP: not controlled 7. Tobaccoism Recommendations 1. No further cardiac testing. Consider C spine imaging. 2. Smoking cessation 3. Consult nephrology. DC NSAIDs 4. Continue secondary prevention measures RUMA CANO MD 11/21/20 7898: CARDIAC CONSULT ASSESSMENT/PLAN ASSESSMENT/PLAN Patient seen and examined. Agree with GERIATRIC NURSE's assessment and plan. Left arm pain noncardiac. CAD status clinically stable. Agree with intravenous fluid for acute renal insufficiency. Recent 2D echo showed normal LV function with EF 55 to 60%. Lexiscan nuclear stress test last year did not show any significant ischemia. No further cardiac work-up is indicated at this time. Follow-up with our office as scheduled. MARIKA MARTINEZ APRN Nov 21, 2020 09:43 RUMA CANO MD Nov 21, 2020 16:48
[2020-11-21 10:27] LABS: CHOLESTEROL/HDL RATIO 4.1
[2020-11-21 11:00] VITALS: BP 120/77
--- NOTE | 2020-11-21 12:03 | PDOC2 ---
CONSULT Date of Consult Date of Consult DATE: 11/21/20 TIME: 11:56 Reason for Consult Reason for Consult: Renal failure Source Source: Chart review, Patient History of Present Illness Reason for Visit: Patient is a 65 year old CM with past medical history of HTN, dm ,CAD PCI and stent approximately 5 years ago who was in his usual state of health until about a month ago when he started complaining of left shoulder pain. He denies any trauma , no strenuous exercise or heavy weight. Patient says that he feels some tingling radiating from his neck down to his arm. Pain 8 out of 10 lasting less than 5 minutes with associated diaphoresis but no nausea ,no vomiting . The other symptom that he also associates with this discomfort is feeling lightheaded especially when going from the sitting position to the up port position. He denies paroxysmal nocturnal dyspnea no orthopnea no peripheral edema no slurred speech no blurred vision no headaches Denies any urinary complaints .He is not aware of any kidney issues or dx of CKD . Denies use of NSAID'.He states he has dx of BPH but is not on meds Past Medical History Cardiovascular: CAD ( s/p PCI/VIRGILIO to LAD, [facility] on 11/10/16 showing widely patent stent in the LAD and chronic total occlusion involving RC.), HTN, Hyperlipidemia Pulmonary: COPD (?), Other (GUILHERME uses CPAP) CENTRAL NERVOUS SYSTEM: Carpal Tunnel Syndrome GI: GERD Psych: Depression Musculoskeletal: Osteoarthritis Renal/: Other (urinary retention) Endocrine: Diabetes (2), Hypothyroidism Past Surgical History Past Surgical History: Hernia Repair (bilateral inguinal), Other (PCI; CTS release; elbow sugery, right thigh mass removal) Family History Family History: No Significant Social History <1 pack per day ALCOHOL: none Drugs: None Lives: Alone Current Problem List Problem List Problems Medical Problems: (1) Acute renal insufficiency Status: Acute (2) Left arm pain Status: Acute Current Medications Current Medications Current Medications Sodium Chloride 1,000 ml @ 1,000 mls/hr 1X ONCE IV Last administered on 11/20/20at 18:00; Start 11/20/20 at 18:00; Stop 11/20/20 at 18:59; Status DC Ondansetron HCl (Zofran) 4 mg PRN Q4HRS PRN IV NAUSEA/VOMITING; Start 11/20/20 at 18:15 Zolpidem Tartrate (Ambien) 5 mg PRN QHS PRN PO INSOMNIA; Start 11/20/20 at 18:15 Acetaminophen (Tylenol) 650 mg PRN Q4HRS PRN PO TEMP OVER 100.4F OR MILD PAIN; Start 11/20/20 at 18:15 Docusate Sodium (Colace) 100 mg PRN BID PRN PO HARD STOOLS; Start 11/20/20 at 18:15 Albuterol Sulfate (Ventolin Neb Soln) 2.5 mg PRN Q4HRS PRN NEB SHORTNESS OF BREATH; Start 11/20/20 at 18:15 Guaifenesin (Robitussin) 200 mg PRN Q4HRS PRN PO COUGH; Start 11/20/20 at 18:15 Lorazepam (Ativan) 0.5 mg PRN Q4HRS PRN PO ANXIETY / AGITATION; Start 11/20/20 at 18:15 Enoxaparin Sodium (Lovenox 40mg Syringe) 40 mg Q24H SQ Last administered on 11/20/20at 22:04; Start 11/20/20 at 19:00 Aspirin (Ecotrin) 81 mg DAILY PO Last administered on 11/21/20at 09:17; Start 11/21/20 at 09:00 Atenolol (Tenormin) 25 mg DAILY PO Last administered on 11/21/20at 09:18; Start 11/21/20 at 09:00 Atorvastatin Calcium (Lipitor) 40 mg HS PO Last administered on 11/20/20at 22:04; Start 11/20/20 at 21:00 Levothyroxine Sodium (Synthroid) 50 mcg DAILY06 PO Last administered on 11/21/20at 09:17; Start 11/21/20 at 06:00 Lisinopril (Prinivil) 20 mg DAILY PO Last administered on 11/21/20at 09:17; Start 11/21/20 at 09:00 Oxycodone/ Acetaminophen (Percocet 7.5/ 325) 1 tab Q4HRS PO ; Start 11/20/20 at 20:00 Non-Formulary Medication (Albuterol Sulfate (Ventolin Hfa Inhaler)) 2 puff QID INH ; Start 11/20/20 at 21:00; Stop 11/20/20 at 18:36; Status DC Bupropion HCl (Wellbutrin Xl) 300 mg DAILY PO Last administered on 11/21/20at 09:17; Start 11/21/20 at 09:00 Citalopram Hydrobromide (CeleXA) 80 mg DAILY PO Last administered on 11/21/20at 09:18; Start 11/21/20 at 09:00 Multivitamins (Thera M Plus) 1 tab DAILY PO Last administered on 11/21/20at 09:17; Start 11/21/20 at 09:00 Insulin Human Lispro (HumaLOG) 0-7 UNITS TIDWMEALS SQ Last administered on 11/21/20at 09:23; Start 11/21/20 at 08:00 Dextrose (Dextrose 50%-Water Syringe) 12.5 gm PRN Q15MIN PRN IV SEE COMMENTS; Start 11/20/20 at 18:15 Albuterol Sulfate (Ventolin Neb Soln) 2.5 mg RTQID NEB Last administered on 11/21/20at 09:31; Start 11/20/20 at 20:00 Active Scripts Active Reported Stool Softener (Docusate Sodium) 50 Mg Capsule 50 Mg PO Percocet 7.5-325 Mg Tablet (Oxycodone/Acetaminophen) 1 Each Tablet 1 Tab PO Q4HRS Lisinopril 20 Mg Tablet 1 Tab PO DAILY Ventolin Hfa Inhaler (Albuterol Sulfate) 18 Gm Hfa.aer.ad 2 Puff INH QID Multi-Day Vitamins (Multivitamin) 1 Each Tablet 1 Each PO DAILY Lexapro (Escitalopram Oxalate) 20 Mg Tablet 40 Mg PO DAILY Wellbutrin Xl (Bupropion Hcl) 300 Mg Tab.er.24h 300 Mg PO DAILY Aspir 81 (Aspirin) 81 Mg Tablet.dr 81 Mg PO Levothyroxine Sodium 50 Mcg Tablet DAILY Metformin Hcl 500 Mg Tablet 1,000 BID HOLD for 48 hr. Restart 11/13. Atorvastatin Calcium 40 Mg Tablet HS Atenolol 25 Mg Tablet DAILY Allergies Allergies: Coded Allergies: sitagliptin (Verified Allergy, Intermediate, Hives, 11/19/17) ROS Review of System A s per HPI , rest of the ROS is negative Physical Exam Physical Exam General: NAD HEENT: Atraumatic, Mucous membr midly dry Neck Supple Lungs: Clear to auscultation, non labored Heart: Regular rate (SR), Normal S1, Normal S2, No murmurs Abdomen: Soft, No tenderness Extremities: No cyanosis, No edema Skin: No rash Neuro: Normal speech, Sensation intact Psych/Mental Status: Mental status NL, Mood NL No Hernandes, no CVA or SP tenderness Vital Signs Vital Signs Date Time Temp Pulse Resp B/P (MAP) Pulse Ox O2 Delivery O2 Flow Rate FiO2 11/21/20 11:00 97.9 82 18 120/77 (91) 99 Room Air 97.9 Assessment & Plan SAMMY - Vasomotor . No interval labs since 2015 No labs this am, Labs POA- E-lyte stable, No emergent indication for HD , supportive care, Gentle Hydration if worsening renal function, avoid Nephrotoxins , strict I/O Obtain interval labs from PCP HTN- Renal Doppler in 2018- No TIFFANY, card managing . Currently on Lisinopril- Hold if worsening renal function CKD 2/ 3 A - Cr 1.2-1.3 in 2015 , CT scan Unremarkable Kidneys in 2018 except for Bilat Renal Cyst . Left arm pain- cardiology CAD: prior stents. EF and WM nml DM2: not controlled Tobaccoism Labs Labs Laboratory Tests Test 11/20/20 16:16 11/20/20 17:55 11/20/20 20:02 11/20/20 21:25 White Blood Count 10.9 x10^3/uL (4.0-11.0) Red Blood Count 3.86 x10^6/uL (4.30-5.70) Hemoglobin 11.2 g/dL (13.0-17.5) Hematocrit 33.5 % (39.0-53.0) Mean Corpuscular Volume 87 fL (79-100) Mean Corpuscular Hemoglobin 29 pg (25-35) Mean Corpuscular Hemoglobin Concent 33 g/dL (31-37) Red Cell Distribution Width 15.3 % (11.5-14.5) Platelet Count 260 x10^3/uL (140-400) Neutrophils (%) (Auto) 71 % (31-73) Lymphocytes (%) (Auto) 17 % (24-48) Monocytes (%) (Auto) 8 % (0-9) Eosinophils (%) (Auto) 3 % (0-3) Basophils (%) (Auto) 1 % (0-3) Neutrophils # (Auto) 7.7 x10^3/uL (1.8-7.7) Lymphocytes # (Auto) 1.8 x10^3/uL (1.0-4.8) Monocytes # (Auto) 0.9 x10^3/uL (0.0-1.1) Eosinophils # (Auto) 0.3 x10^3/uL (0.0-0.7) Basophils # (Auto) 0.1 x10^3/uL (0.0-0.2) Prothrombin Time 12.8 SEC (11.7-14.0) Prothromb Time International Ratio 1.0 (0.8-1.1) Sodium Level 135 mmol/L (136-145) Potassium Level 4.8 mmol/L (3.5-5.1) Chloride Level 100 mmol/L (98-107) Carbon Dioxide Level 23 mmol/L (21-32) Anion Gap 12 (6-14) Blood Urea Nitrogen 32 mg/dL (8-26) Creatinine 2.1 mg/dL (0.7-1.3) Estimated GFR (Cockcroft-Gault) 31.7 BUN/Creatinine Ratio 15 (6-20) Glucose Level 321 mg/dL (70-99) Calcium Level 9.7 mg/dL (8.5-10.1) Total Bilirubin 0.4 mg/dL (0.2-1.0) Aspartate Amino Transf (AST/SGOT) 18 U/L (15-37) Alanine Aminotransferase (ALT/SGPT) 26 U/L (16-63) Alkaline Phosphatase 95 U/L (46-116) Troponin I Quantitative < 0.017 ng/mL (0.000-0.055) < 0.017 ng/mL (0.000-0.055) KZ-[id number]-Type Natriuretic Peptide 11 pg/mL (0-124) Total Protein 7.4 g/dL (6.4-8.2) Albumin 3.7 g/dL (3.4-5.0) Albumin/Globulin Ratio 1.0 (1.0-1.7) Thyroid Stimulating Hormone (TSH) 2.753 uIU/mL (0.358-3.74) Urine Opiates Screen Neg (NEG) Urine Methadone Screen Neg (NEG) Urine Barbiturates Neg (NEG) Urine Phencyclidine Screen Neg (NEG) Urine Amphetamine/Methamphetamine Neg (NEG) Urine Benzodiazepines Screen Neg (NEG) Urine Cocaine Screen Neg (NEG) Urine Cannabinoids Screen Neg (NEG) Urine Ethyl Alcohol Neg (NEG) Glucose (Fingerstick) 283 mg/dL (70-99) Test 11/20/20 22:20 11/21/20 09:05 11/21/20 09:30 Troponin I Quantitative < 0.017 ng/mL (0.000-0.055) Glucose (Fingerstick) 195 mg/dL (70-99) Triglycerides Level 217 mg/dL (0-150) Cholesterol Level 106 mg/dL (0-200) LDL Cholesterol, Calculated 37 mg/dL (0-100) VLDL Cholesterol, Calculated 43 mg/dL (0-40) Non-HDL Cholesterol Calculated 80 mg/dL (0-129) HDL Cholesterol 26 mg/dL (40-60) Cholesterol/HDL Ratio 4.1 Laboratory Tests Test 11/20/20 16:16 11/20/20 17:55 11/20/20 20:02 11/20/20 21:25 White Blood Count 10.9 x10^3/uL (4.0-11.0) Red Blood Count 3.86 x10^6/uL (4.30-5.70) Hemoglobin 11.2 g/dL (13.0-17.5) Hematocrit 33.5 % (39.0-53.0) Mean Corpuscular Volume 87 fL (79-100) Mean Corpuscular Hemoglobin 29 pg (25-35) Mean Corpuscular Hemoglobin Concent 33 g/dL (31-37) Red Cell Distribution Width 15.3 % (11.5-14.5) Platelet Count 260 x10^3/uL (140-400) Neutrophils (%) (Auto) 71 % (31-73) Lymphocytes (%) (Auto) 17 % (24-48) Monocytes (%) (Auto) 8 % (0-9) Eosinophils (%) (Auto) 3 % (0-3) Basophils (%) (Auto) 1 % (0-3) Neutrophils # (Auto) 7.7 x10^3/uL (1.8-7.7) Lymphocytes # (Auto) 1.8 x10^3/uL (1.0-4.8) Monocytes # (Auto) 0.9 x10^3/uL (0.0-1.1) Eosinophils # (Auto) 0.3 x10^3/uL (0.0-0.7) Basophils # (Auto) 0.1 x10^3/uL (0.0-0.2) Prothrombin Time 12.8 SEC (11.7-14.0) Prothromb Time International Ratio 1.0 (0.8-1.1) Sodium Level 135 mmol/L (136-145) Potassium Level 4.8 mmol/L (3.5-5.1) Chloride Level 100 mmol/L (98-107) Carbon Dioxide Level 23 mmol/L (21-32) Anion Gap 12 (6-14) Blood Urea Nitrogen 32 mg/dL (8-26) Creatinine 2.1 mg/dL (0.7-1.3) Estimated GFR (Cockcroft-Gault) 31.7 BUN/Creatinine Ratio 15 (6-20) Glucose Level 321 mg/dL (70-99) Calcium Level 9.7 mg/dL (8.5-10.1) Total Bilirubin 0.4 mg/dL (0.2-1.0) Aspartate Amino Transf (AST/SGOT) 18 U/L (15-37) Alanine Aminotransferase (ALT/SGPT) 26 U/L (16-63) Alkaline Phosphatase 95 U/L (46-116) Troponin I Quantitative < 0.017 ng/mL (0.000-0.055) < 0.017 ng/mL (0.000-0.055) XZ-Sjf-H-Type Natriuretic Peptide 11 pg/mL (0-124) Total Protein 7.4 g/dL (6.4-8.2) Albumin 3.7 g/dL (3.4-5.0) Albumin/Globulin Ratio 1.0 (1.0-1.7) Thyroid Stimulating Hormone (TSH) 2.753 uIU/mL (0.358-3.74) Urine Opiates Screen Neg (NEG) Urine Methadone Screen Neg (NEG) Urine Barbiturates Neg (NEG) Urine Phencyclidine Screen Neg (NEG) Urine Amphetamine/Methamphetamine Neg (NEG) Urine Benzodiazepines Screen Neg (NEG) Urine Cocaine Screen Neg (NEG) Urine Cannabinoids Screen Neg (NEG) Urine Ethyl Alcohol Neg (NEG) Glucose (Fingerstick) 283 mg/dL (70-99) Test 11/20/20 22:20 11/21/20 09:05 11/21/20 09:30 Troponin I Quantitative < 0.017 ng/mL (0.000-0.055) Glucose (Fingerstick) 195 mg/dL (70-99) Triglycerides Level 217 mg/dL (0-150) Cholesterol Level 106 mg/dL (0-200) LDL Cholesterol, Calculated 37 mg/dL (0-100) VLDL Cholesterol, Calculated 43 mg/dL (0-40) Non-HDL Cholesterol Calculated 80 mg/dL (0-129) HDL Cholesterol 26 mg/dL (40-60) Cholesterol/HDL Ratio 4.1 Review All relevant outside records, renal labs, imaging studies, telemetry/EKG's were reviewed. Images Images Renal Doppler 2017 Grayscale images of the bilateral kidneys were difficult to obtain due to obesity. 2 simple cysts are noted on the right kidney measuring proximal me 3.3 x 2.8 cm. No vascularity is noted. 1 simple cyst is noted on the left kidney measuring approximately 1.8 x 1.7 cm. Spectral waveforms and color Doppler are limited of the bilateral proximal and middle renal arteries but grossly do not show any evidence of stenosis. Renal to aortic ratios are within normal limits. No obvious upper maladies are noted on limited imaging of the bladder. Critical Notification Critical Value: No <Conclusion> 1. Technically difficult study due to obesity. 2. Incidental simple renal cysts identified. 3. No high-grade renal artery stenosis noted. CT w Contrast 2017 IMPRESSION: 1. Bilateral renal cysts. 2. Distal sigmoid colonic narrowing which is most likely due to a colonic contraction, although a stricture or neoplasm cannot be excluded. Correlation with colonoscopic findings is suggested. 3. No acute abdominal or pelvic abnormality is detected. ALBANIA FARLEY MD Nov 21, 2020 12:03
--- NOTE | 2020-11-21 12:45 | NUR ---
SW following. Discussed with RN, pt from home with daughter, room air, cardiac diet, ad deena. Cardiology and renal following. RN advised no SW needs at this time. SW will continue to follow.
[2020-11-21 12:51] LABS: CREATININE 1.6 mg/dL (0.7-1.3); GFR 43.3; POTASSIUM 4.4 mmol/L (3.5-5.1)
--- NOTE | 2020-11-21 13:07 | RAD ---
EXAM: Cervical spine, 3 views. HISTORY: Radiculopathy. COMPARISON: None. FINDINGS: 3 views of the cervical spine are obtained. There is mild cervical kyphosis. There is minim al retrolisthesis of C4 on C5 and C5 on C6. There is degenerative endplate remodeling with disc space narrowing and anterior osteophytosis primarily at C4-C7. There is multilevel facet arthropathy. No f racture is seen. IMPRESSION: 1. Multilevel degenerative change, described above. 2. No acute osseous finding. Electronically signed by: Rosi Samaniego MD (11/21/2020 1:04 PM) [id number]
[2020-11-21 15:00] VITALS: BP 109/67
[2020-11-21] MEDS ORDERED: oxyCODONE/APAP 7.5/325 1 TAB TABLET PO PRN (15:30)
[2020-11-21] MEDS: IV NORMAL SALINE 1000ML BAG 1,000 ML IV SCH (17:38)
[2020-11-21] MEDS: ENOXAPARIN 40 MG/0.4 ML SYRINGE. SQ SCH (17:38)
--- NOTE | 2020-11-21 17:45 | PDOC ---
PROGRESS NOTES Date of Service: DATE: 11/21/20 TIME: 17:41 Chief Complaint Chief Complaint Assessment/Plan Acute renal failure secondary to most likely vasomotor etiology Severe dehydration Left arm pain Chest pain equivalent with a heart score of 5 History of CAD status post PCI and stent approximately 5 years ago History of essential hypertension History of diabetes mellitus type 2 uncontrolled with his last hemoglobin A1c being in about the 9 range History of hypothyroidism Tobacco abuse Plan Follow recommendations from senior billing consultant Unlikely is cardiac in nature his symptoms We will give gentle IV hydration as recommended by our nephrology senior billing consultant Reassess labs in the a.m. Resume home medication Further recommendations based on clinical course DVT prophylaxis with Lovenox History of Present Illness History of Present Illness History of Present Illness Patient is a 65 year old male with past medical history of essential hypertension diabetes type 2 PCI and stent approximately 5 years ago who was in his usual state of health until about a month ago when he started complaining of left shoulder pain. The patient denies any trauma to the affected area the patient denies any recent changes to his activity level no heavy objects have been lifted and he has not engaged in a new exercise program. Patient says that he feels some tingling radiating from his neck down to his arm. Sensation of electric shock, the patient does not refer precordial pain no angina type of symptoms when the pain a flex him he rates it at a 8 out of 10 lasting less than 5 minutes with associated diaphoresis but no sensation of impending doom no nausea no vomiting associated with the symptoms. The other symptom that he also associates with this discomfort is feeling lightheaded especially when going from the sitting position to the up port position. He denies paroxysmal nocturnal dyspnea no orthopnea no peripheral edema no odynophagia no dysphagia no slurred speech no blurred vision no headaches were reported by the patient either. The patient denies any recent travels no neck stiffness no meningeal signs. Serendipitously he was found to have an increased creatinine level reason why he was admitted for observation. The patient has been taking some aspirin and meloxicam at home for this discomfort but it does not sound like he has been abusing the medication. Plan of care has been explained in detail and the laboratory data has been also explained in detail to the patient. All of his concerns were addressed to the best of my abilities His heart score was calculated in the emergency department he has a score of 5 reason why we were asked to admit and rule him out as well and even though he denies any chest discomfort 11/21: No acute events reported overnight, case discussed with nursing staff patient in no acute distress no complaints during my visit Vitals Vitals Vital Signs Date Time Temp Pulse Resp B/P (MAP) Pulse Ox O2 Delivery O2 Flow Rate FiO2 11/21/20 16:22 Room Air 11/21/20 15:00 97.5 67 16 109/67 (81) 96 97.5 Physical Exam General: Alert, Oriented X3, Cooperative, No acute distress Heart: Regular rate (SR), Normal S1, Normal S2, No murmurs Abdomen: Soft, No tenderness Extremities: No cyanosis, No edema Skin: No significant lesion Labs LABS Laboratory Tests Test 11/20/20 17:55 11/20/20 20:02 11/20/20 21:25 11/20/20 22:20 Urine Opiates Screen Neg (NEG) Urine Methadone Screen Neg (NEG) Urine Barbiturates Neg (NEG) Urine Phencyclidine Screen Neg (NEG) Urine Amphetamine/Methamphetamine Neg (NEG) Urine Benzodiazepines Screen Neg (NEG) Urine Cocaine Screen Neg (NEG) Urine Cannabinoids Screen Neg (NEG) Urine Ethyl Alcohol Neg (NEG) Troponin I Quantitative < 0.017 ng/mL (0.000-0.055) < 0.017 ng/mL (0.000-0.055) Glucose (Fingerstick) 283 mg/dL (70-99) Test 11/21/20 09:05 11/21/20 09:30 11/21/20 11:56 11/21/20 17:05 Glucose (Fingerstick) 195 mg/dL (70-99) 263 mg/dL (70-99) 189 mg/dL (70-99) Sodium Level 137 mmol/L (136-145) Potassium Level 4.4 mmol/L (3.5-5.1) Chloride Level 102 mmol/L (98-107) Carbon Dioxide Level 26 mmol/L (21-32) Anion Gap 9 (6-14) Blood Urea Nitrogen 25 mg/dL (8-26) Creatinine 1.6 mg/dL (0.7-1.3) Estimated GFR (Cockcroft-Gault) 43.3 Glucose Level 242 mg/dL (70-99) Calcium Level 9.0 mg/dL (8.5-10.1) Triglycerides Level 217 mg/dL (0-150) Cholesterol Level 106 mg/dL (0-200) LDL Cholesterol, Calculated 37 mg/dL (0-100) VLDL Cholesterol, Calculated 43 mg/dL (0-40) Non-HDL Cholesterol Calculated 80 mg/dL (0-129) HDL Cholesterol 26 mg/dL (40-60) Cholesterol/HDL Ratio 4.1 Assessment and Plan Assessmemt and Plan Problems Medical Problems: (1) Acute renal insufficiency Status: Acute (2) Left arm pain Status: Acute Comment Review of Relevant I have reviewed the following items cm (where applicable) has been applied. Labs Laboratory Tests Test 11/20/20 16:16 11/20/20 17:55 11/20/20 20:02 11/20/20 21:25 White Blood Count 10.9 x10^3/uL (4.0-11.0) Red Blood Count 3.86 x10^6/uL (4.30-5.70) Hemoglobin 11.2 g/dL (13.0-17.5) Hematocrit 33.5 % (39.0-53.0) Mean Corpuscular Volume 87 fL (79-100) Mean Corpuscular Hemoglobin 29 pg (25-35) Mean Corpuscular Hemoglobin Concent 33 g/dL (31-37) Red Cell Distribution Width 15.3 % (11.5-14.5) Platelet Count 260 x10^3/uL (140-400) Neutrophils (%) (Auto) 71 % (31-73) Lymphocytes (%) (Auto) 17 % (24-48) Monocytes (%) (Auto) 8 % (0-9) Eosinophils (%) (Auto) 3 % (0-3) Basophils (%) (Auto) 1 % (0-3) Neutrophils # (Auto) 7.7 x10^3/uL (1.8-7.7) Lymphocytes # (Auto) 1.8 x10^3/uL (1.0-4.8) Monocytes # (Auto) 0.9 x10^3/uL (0.0-1.1) Eosinophils # (Auto) 0.3 x10^3/uL (0.0-0.7) Basophils # (Auto) 0.1 x10^3/uL (0.0-0.2) Prothrombin Time 12.8 SEC (11.7-14.0) Prothromb Time International Ratio 1.0 (0.8-1.1) Sodium Level 135 mmol/L (136-145) Potassium Level 4.8 mmol/L (3.5-5.1) Chloride Level 100 mmol/L (98-107) Carbon Dioxide Level 23 mmol/L (21-32) Anion Gap 12 (6-14) Blood Urea Nitrogen 32 mg/dL (8-26) Creatinine 2.1 mg/dL (0.7-1.3) Estimated GFR (Cockcroft-Gault) 31.7 BUN/Creatinine Ratio 15 (6-20) Glucose Level 321 mg/dL (70-99) Calcium Level 9.7 mg/dL (8.5-10.1) Total Bilirubin 0.4 mg/dL (0.2-1.0) Aspartate Amino Transf (AST/SGOT) 18 U/L (15-37) Alanine Aminotransferase (ALT/SGPT) 26 U/L (16-63) Alkaline Phosphatase 95 U/L (46-116) Troponin I Quantitative < 0.017 ng/mL (0.000-0.055) < 0.017 ng/mL (0.000-0.055) JM-Fsr-J-Type Natriuretic Peptide 11 pg/mL (0-124) Total Protein 7.4 g/dL (6.4-8.2) Albumin 3.7 g/dL (3.4-5.0) Albumin/Globulin Ratio 1.0 (1.0-1.7) Thyroid Stimulating Hormone (TSH) 2.753 uIU/mL (0.358-3.74) Urine Opiates Screen Neg (NEG) Urine Methadone Screen Neg (NEG) Urine Barbiturates Neg (NEG) Urine Phencyclidine Screen Neg (NEG) Urine Amphetamine/Methamphetamine Neg (NEG) Urine Benzodiazepines Screen Neg (NEG) Urine Cocaine Screen Neg (NEG) Urine Cannabinoids Screen Neg (NEG) Urine Ethyl Alcohol Neg (NEG) Glucose (Fingerstick) 283 mg/dL (70-99) Test 11/20/20 22:20 11/21/20 09:05 11/21/20 09:30 11/21/20 11:56 Troponin I Quantitative < 0.017 ng/mL (0.000-0.055) Glucose (Fingerstick) 195 mg/dL (70-99) 263 mg/dL (70-99) Sodium Level 137 mmol/L (136-145) Potassium Level 4.4 mmol/L (3.5-5.1) Chloride Level 102 mmol/L (98-107) Carbon Dioxide Level 26 mmol/L (21-32) Anion Gap 9 (6-14) Blood Urea Nitrogen 25 mg/dL (8-26) Creatinine 1.6 mg/dL (0.7-1.3) Estimated GFR (Cockcroft-Gault) 43.3 Glucose Level 242 mg/dL (70-99) Calcium Level 9.0 mg/dL (8.5-10.1) Triglycerides Level 217 mg/dL (0-150) Cholesterol Level 106 mg/dL (0-200) LDL Cholesterol, Calculated 37 mg/dL (0-100) VLDL Cholesterol, Calculated 43 mg/dL (0-40) Non-HDL Cholesterol Calculated 80 mg/dL (0-129) HDL Cholesterol 26 mg/dL (40-60) Cholesterol/HDL Ratio 4.1 Test 11/21/20 17:05 Glucose (Fingerstick) 189 mg/dL (70-99) Laboratory Tests Test 11/20/20 17:55 11/20/20 20:02 11/20/20 21:25 11/20/20 22:20 Urine Opiates Screen Neg (NEG) Urine Methadone Screen Neg (NEG) Urine Barbiturates Neg (NEG) Urine Phencyclidine Screen Neg (NEG) Urine Amphetamine/Methamphetamine Neg (NEG) Urine Benzodiazepines Screen Neg (NEG) Urine Cocaine Screen Neg (NEG) Urine Cannabinoids Screen Neg (NEG) Urine Ethyl Alcohol Neg (NEG) Troponin I Quantitative < 0.017 ng/mL (0.000-0.055) < 0.017 ng/mL (0.000-0.055) Glucose (Fingerstick) 283 mg/dL (70-99) Test 11/21/20 09:05 11/21/20 09:30 11/21/20 11:56 11/21/20 17:05 Glucose (Fingerstick) 195 mg/dL (70-99) 263 mg/dL (70-99) 189 mg/dL (70-99) Sodium Level 137 mmol/L (136-145) Potassium Level 4.4 mmol/L (3.5-5.1) Chloride Level 102 mmol/L (98-107) Carbon Dioxide Level 26 mmol/L (21-32) Anion Gap 9 (6-14) Blood Urea Nitrogen 25 mg/dL (8-26) Creatinine 1.6 mg/dL (0.7-1.3) Estimated GFR (Cockcroft-Gault) 43.3 Glucose Level 242 mg/dL (70-99) Calcium Level 9.0 mg/dL (8.5-10.1) Triglycerides Level 217 mg/dL (0-150) Cholesterol Level 106 mg/dL (0-200) LDL Cholesterol, Calculated 37 mg/dL (0-100) VLDL Cholesterol, Calculated 43 mg/dL (0-40) Non-HDL Cholesterol Calculated 80 mg/dL (0-129) HDL Cholesterol 26 mg/dL (40-60) Cholesterol/HDL Ratio 4.1 Medications Current Medications Sodium Chloride 1,000 ml @ 1,000 mls/hr 1X ONCE IV Last administered on 11/20/20at 18:00; Start 11/20/20 at 18:00; Stop 11/20/20 at 18:59; Status DC Ondansetron HCl (Zofran) 4 mg PRN Q4HRS PRN IV NAUSEA/VOMITING; Start 11/20/20 at 18:15 Zolpidem Tartrate (Ambien) 5 mg PRN QHS PRN PO INSOMNIA; Start 11/20/20 at 18:15 Acetaminophen (Tylenol) 650 mg PRN Q4HRS PRN PO TEMP OVER 100.4F OR MILD PAIN; Start 11/20/20 at 18:15 Docusate Sodium (Colace) 100 mg PRN BID PRN PO HARD STOOLS; Start 11/20/20 at 18:15 Albuterol Sulfate (Ventolin Neb Soln) 2.5 mg PRN Q4HRS PRN NEB SHORTNESS OF BREATH; Start 11/20/20 at 18:15 Guaifenesin (Robitussin) 200 mg PRN Q4HRS PRN PO COUGH; Start 11/20/20 at 18:15 Lorazepam (Ativan) 0.5 mg PRN Q4HRS PRN PO ANXIETY / AGITATION; Start 11/20/20 at 18:15 Enoxaparin Sodium (Lovenox 40mg Syringe) 40 mg Q24H SQ Last administered on 11/20/20at 22:04; Start 11/20/20 at 19:00 Aspirin (Ecotrin) 81 mg DAILY PO Last administered on 11/21/20at 09:17; Start 11/21/20 at 09:00 Atenolol (Tenormin) 25 mg DAILY PO Last administered on 11/21/20at 09:18; Start 11/21/20 at 09:00 Atorvastatin Calcium (Lipitor) 40 mg HS PO Last administered on 11/20/20at 22:04; Start 11/20/20 at 21:00 Levothyroxine Sodium (Synthroid) 50 mcg DAILY06 PO Last administered on 11/21/20a t 09:17; Start 11/21/20 at 06:00 Lisinopril (Prinivil) 20 mg DAILY PO Last administered on 11/21/20at 09:17; Start 11/21/20 at 09:00 Oxycodone/ Acetaminophen (Percocet 7.5/ 325) 1 tab Q4HRS PO ; Start 11/20/20 at 20:00; Stop 11/21/20 at 15:24; Status DC Non-Formulary Medication (Albuterol Sulfate (Ventolin Hfa Inhaler)) 2 puff QID INH ; Start 11/20/20 at 21:00; Stop 11/20/20 at 18:36; Status DC Bupropion HCl (Wellbutrin Xl) 300 mg DAILY PO Last administered on 11/21/20at 09:17; Start 11/21/20 at 09:00 Citalopram Hydrobromide (CeleXA) 80 mg DAILY PO Last administered on 11/21/20at 09:18; Start 11/21/20 at 09:00 Multivitamins (Thera M Plus) 1 tab DAILY PO Last administered on 11/21/20at 09:17; Start 11/21/20 at 09:00 Insulin Human Lispro (HumaLOG) 0-7 UNITS TIDWMEALS SQ Last administered on 11/21/20at 12:11; Start 11/21/20 at 08:00 Dextrose (Dextrose 50%-Water Syringe) 12.5 gm PRN Q15MIN PRN IV SEE COMMENTS; Start 11/20/20 at 18:15 Albuterol Sulfate (Ventolin Neb Soln) 2.5 mg RTQID NEB Last administered on 11/21/20at 16:21; Start 11/20/20 at 20:00 Oxycodone/ Acetaminophen (Percocet 7.5/ 325) 1 tab PRN Q4HRS PRN PO MODERATE- SEVERE PAIN; Start 11/21/20 at 15:30 Sodium Chloride 1,000 ml @ 75 mls/hr [id number] IV ; Start 11/21/20 at 18:00 Active Scripts Active Reported Stool Softener (Docusate Sodium) 50 Mg Capsule 50 Mg PO Percocet 7.5-325 Mg Tablet (Oxycodone/Acetaminophen) 1 Each Tablet 1 Tab PO Q4HRS Lisinopril 20 Mg Tablet 1 Tab PO DAILY Ventolin Hfa Inhaler (Albuterol Sulfate) 18 Gm Hfa.aer.ad 2 Puff INH QID Multi-Day Vitamins (Multivitamin) 1 Each Tablet 1 Each PO DAILY Lexapro (Escitalopram Oxalate) 20 Mg Tablet 40 Mg PO DAILY Wellbutrin Xl (Bupropion Hcl) 300 Mg Tab.er.24h 300 Mg PO DAILY Aspir 81 (Aspirin) 81 Mg Tablet.dr 81 Mg PO Levothyroxine Sodium 50 Mcg Tablet DAILY Metformin Hcl 500 Mg Tablet 1,000 BID HOLD for 48 hr. Restart 11/13. Atorvastatin Calcium 40 Mg Tablet HS Atenolol 25 Mg Tablet DAILY Vitals/I & O Vital Sign - Last 24 Hours 11/20/20 11/20/20 11/20/20 11/20/20 19:25 19:36 20:04 20:10 Temp 98.6 98.6 Pulse 90 94 96 95 Resp 18 B/P (MAP) 153/73 (99) 162/77 (105) 185/74 (111) 145/68 (93) Pulse Ox 99 97 98 98 O2 Delivery Room Air Room Air Room Air 11/20/20 11/20/20 11/21/20 11/21/20 20:45 23:00 03:00 08:00 Temp 97.9 97.5 97.9 97.5 Pulse 91 94 Resp 16 16 B/P (MAP) 110/50 (70) 134/72 (92) Pulse Ox 100 99 96 O2 Delivery Room Air 11/21/20 11/21/20 11/21/20 11/21/20 09:00 09:17 09:18 09:32 Temp 98.5 98.5 Pulse 101 101 101 Resp 16 B/P (MAP) 124/70 (88) 124/70 124/70 Pulse Ox 95 97 O2 Delivery Room Air Room Air 11/21/20 11/21/20 11/21/20 11:00 15:00 16:22 Temp 97.9 97.5 97.9 97.5 Pulse 82 67 Resp 18 16 B/P (MAP) 120/77 (91) 109/67 (81) Pulse Ox 99 96 O2 Delivery Room Air Room Air Room Air Intake and Output 11/20/20 11/20/20 11/21/20 14:59 22:59 06:59 Intake Total 1000 ml Balance 1000 ml Justicifation of Admission Dx: Justifications for Admission: Justification of Admission Dx: Yes Comments: acute renal failure TENISHA LOJA MD Nov 21, 2020 17:45
--- NOTE | 2020-11-21 18:10 | CARD ---
MR#: [id number] Date of Study: 11/21/2020 Ordering Physician: TENISHA LOJA, Referring Physician: TENISHA LOJA Tech: Esperanza Arguello [facility] APPROVED REPORT EXAM: Two-dimensional and M-mode echocardiogram with Doppler and color Doppler. Other Information Quality : FairHR: 88bpm Rhythm : NSR INDICATION CAD Chest Pain RISK FACTORS Hypertension Obesity Hyperlipidemia Diabetes Smoking 2D DIMENSIONS Left Atrium(2D)3.7 (1.6-4.0cm)IVSd1.5 (0.7-1.1cm) Aortic Root(2D)3.7 (2.0-3.7cm)LVDd5.3 (3.9-5.9cm) LVOT Diameter2.4 (1.8-2.4cm)PWd0.5 (0.7-1.1cm) IVSs0.8 (0.8-1.2cm)LVDs4.4 (2.5-4.0cm) FS (%) 15.4 %PWs1.5 (0.8-1.2cm) SV43.1 ml Aortic Valve AoV Peak Mario.109.6cm/sAoV VTI18.0cm AO Peak GR.4.8mmHgLVOT Peak Mario.97.3cm/s LVOT VTI 17.90cmAO Mean GR.3mmHg ALYSSA (VMAX)2.92ft1SVY (VTI)4.59cm2 Mitral Valve MV E Mmilqpkr13.6cm/sMV DECEL [id number] MV A Iwgdwytz34.0cm/sMV TQT74hu E/A Ratio0.8MVA (PHT)2.65cm2 Pulmonary Valve PV Peak Ibwksgpb29.6cm/sPV Peak Grad.4mmHg Pulmonary Vein S1 Lcrkahdk34.1cm/sD2 Nxrtscbe41.2cm/s PVa [id number] LEFT VENTRICLE The left ventricle is normal size. There is borderline to mild concentric left ventricular hypertroph y. The left ventricular systolic function is normal and the ejection fraction is within normal range. Estimated ejection fraction 55-60%. There is normal LV segmental wall motion. Tissue Doppler imagin g reveals mild left ventricular diastolic dysfunction. RIGHT VENTRICLE The right ventricle is normal size. There is normal right ventricular wall thickness. The right ventr icular systolic function is normal. ATRIA The left atrium size is normal. The right atrium size is normal. The interatrial septum is intact wit h no evidence for an atrial septal defect or patent foramen ovale as noted on 2-D or Doppler imaging. AORTIC VALVE The aortic valve is normal in structure and function. Doppler and Color Flow revealed no significant aortic regurgitation. There is no significant aortic valvular stenosis. MITRAL VALVE The mitral valve is normal in structure and function. There is no evidence of mitral valve prolapse. There is no mitral valve stenosis. Doppler and Color-flow revealed trace mitral regurgitation. TRICUSPID VALVE The tricuspid valve is normal in structure and function. Doppler and Color Flow revealed trace tricus pid regurgitation. PULMONIC VALVE The pulmonary valve is normal in structure and function. Doppler and Color Flow revealed no pulmonic valvular regurgitation. GREAT VESSELS The aortic root is normal in size. The ascending aorta is normal in size. The IVC is normal in size a nd collapses >50% with inspiration. PERICARDIAL EFFUSION There is no evidence of significant pericardial effusion. Critical Notification Critical Value: No <Conclusion> The left ventricle is normal size. The left ventricular systolic function is normal and the ejection fraction is within normal range. Estimated ejection fraction 55-60%. There is borderline to mild concentric left ventricular hypertrophy. Doppler and Color Flow revealed no significant aortic regurgitation. There is no significant aortic valvular stenosis. Doppler and Color-flow revealed trace mitral regurgitation. Doppler and Color Flow revealed trace tricuspid regurgitation. Signed by : Shadi Jordan MD Electronically Approved : 11/21/2020 18:10:03
[2020-11-21 19:00] VITALS: BP 123/71
[2020-11-21] MEDS: ATORVASTATIN CALCIUM 40 MG TABLET. PO SCH (21:05)
[2020-11-21 23:00] VITALS: BP 126/64
[2020-11-22 03:00] VITALS: BP 122/66
[2020-11-22] MEDS: LEVOTHYROXINE 50 MCG TABLET PO SCH (06:03)
[2020-11-22] MEDS: ALBUTEROL SULFATE 2.5 MG/3 ML NEBU. NEB SCH ×2 (07:13→11:24)
[2020-11-22 07:38] VITALS: BP 136/70
[2020-11-22 08:00] LABS: CALCIUM 8.4 mg/dL (8.5-10.1); CREATININE 1.5 mg/dL (0.7-1.3); GFR 46.7; POTASSIUM 4.3 mmol/L (3.5-5.1)
[2020-11-22] MEDS: MULTIVITAMIN with MINERAL TABLET. PO SCH (08:24)
[2020-11-22] MEDS: buPROPion XL 150 MG TAB.ER.24H. PO SCH (08:24)
[2020-11-22] MEDS: ASPIRIN ENTERIC COATED 81 MG TABLET.DR. PO SCH (08:24)
[2020-11-22] MEDS: LISINOPRIL 20 MG TABLET PO SCH (08:25)
[2020-11-22] MEDS: CITALOPRAM 20 MG TABLET. PO SCH (08:25)
[2020-11-22] MEDS: ATENOLOL 25 MG TABLET. PO SCH (08:25)
[2020-11-22] MEDS: IV NORMAL SALINE 1000ML BAG 1,000 ML IV SCH (08:29)
[2020-11-22] MEDS: INSULIN LISPRO 300 UNITS/3 ML VIAL. SQ SCH ×2 (08:32→12:53)
--- NOTE | 2020-11-22 09:56 | PDOC ---
DATE OF SERVICE DATE: 11/22/20 TIME: 09:56 SUBJECTIVE ROS States feeling better. No complaints. Daughter at bedside OBJECTIVE Vital Signs Vital Signs Date Time Temp Pulse Resp B/P (MAP) Pulse Ox O2 Delivery O2 Flow Rate FiO2 11/22/20 08:25 78 136/70 11/22/20 07:38 98.4 20 97 Room Air 98.4 I & 0 Intake and Output 11/22/20 07:00 Intake Total 840 ml Balance 840 ml Intake Oral 840 ml # Voids 5 PHYSICAL EXAM Physical Exam General: NAD HEENT: Atraumatic, Mucous membr moist Neck Supple Lungs: Clear to auscultation, non labored Heart: Regular rate (SR), Normal S1, Normal S2, No murmurs Abdomen: Soft, No tenderness Extremities: No cyanosis, No edema Skin: No rash Neuro: Normal speech, Sensation intact Psych/Mental Status: Mental status NL, Mood NL No Hernandes, no CVA or SP tenderness DIAGNOSIS/ASSESSMENT Assessment & Plan SAMMY - Vasomotor Discussed at great length with pt and daughter. As per my request daughter was able to get labs from PCP's office(Glenny Domingo) - rEcent Cr in 1.8( Pt and daughter report they were not aware ) Improving renal function E-lyte stable, supportive care, avoid Nephrotoxins , strict I/O . Avoid Nephrotoxins. FU appt with us after dc- Routine /Non urgent HTN- Renal Doppler in 2017- No TIFFANY, card managing . Currently on Lisinopril- Hold if worsening renal function CKD 2/ 3 A - Cr 1.2-1.3 in 2015 ,In May 2020- Cr 1.8 (asked daughter to get the report ) CT scan Unremarkable Kidneys in 2018 except for Bilat Renal Cyst . Left arm pain- cardiology CAD: prior stents. EF and WM nml DM2: not controlled Tobaccoism COMMENT/RELEVANT DATA Meds Current Medications Medications (Trade) Dose Ordered Sig/Geoffrey Start Time Stop Time Status Last Admin Dose Admin Acetaminophen (Tylenol) 650 mg PRN Q4HRS PRN 11/20/20 18:15 Albuterol Sulfate (Ventolin Neb Soln) 2.5 mg RTQID 11/20/20 20:00 11/22/20 07:13 2.5 MG Aspirin (Ecotrin) 81 mg DAILY 11/21/20 09:00 11/22/20 08:24 81 MG Atenolol (Tenormin) 25 mg DAILY 11/21/20 09:00 11/22/20 08:25 25 MG Atorvastatin Calcium (Lipitor) 40 mg HS 11/20/20 21:00 11/21/20 21:05 40 MG Bupropion HCl (Wellbutrin Xl) 300 mg DAILY 11/21/20 09:00 11/22/20 08:24 300 MG Citalopram Hydrobromide (CeleXA) 80 mg DAILY 11/21/20 09:00 11/22/20 08:25 80 MG Dextrose (Dextrose 50%-Water Syringe) 12.5 gm PRN Q15MIN PRN 11/20/20 18:15 Docusate Sodium (Colace) 100 mg PRN BID PRN 11/20/20 18:15 Enoxaparin Sodium (Lovenox 40mg Syringe) 40 mg Q24H 11/20/20 19:00 11/21/20 17:38 40 MG Guaifenesin (Robitussin) 200 mg PRN Q4HRS PRN 11/20/20 18:15 Insulin Human Lispro (HumaLOG) 0-7 UNITS TIDWMEALS 11/21/20 08:00 11/22/20 08:32 4 UNITS Levothyroxine Sodium (Synthroid) 50 mcg DAILY06 11/21/20 06:00 11/22/20 06:03 50 MCG Lisinopril (Prinivil) 20 mg DAILY 11/21/20 09:00 11/22/20 08:25 20 MG Lorazepam (Ativan) 0.5 mg PRN Q4HRS PRN 11/20/20 18:15 Multivitamins (Thera M Plus) 1 tab DAILY 11/21/20 09:00 11/22/20 08:24 1 TAB Non-Formulary Medication (Albuterol Sulfate (Ventolin Hfa Inhaler)) 2 puff QID 11/20/20 21:00 11/20/20 18:36 DC Ondansetron HCl (Zofran) 4 mg PRN Q4HRS PRN 11/20/20 18:15 Oxycodone/ Acetaminophen (Percocet 7.5/ 325) 1 tab PRN Q4HRS PRN 11/21/20 15:30 Sodium Chloride 1,000 ml @ 75 mls/hr [id number] 11/21/20 18:00 11/22/20 08:29 75 MLS/HR Zolpidem Tartrate (Ambien) 5 mg PRN QHS PRN 11/20/20 18:15 Lab Laboratory Tests Test 11/21/20 11:56 11/21/20 17:05 11/22/20 07:10 11/22/20 07:15 Glucose (Fingerstick) 263 mg/dL (70-99) 189 mg/dL (70-99) 226 mg/dL (70-99) Sodium Level 137 mmol/L (136-145) Potassium Level 4.3 mmol/L (3.5-5.1) Chloride Level 103 mmol/L (98-107) Carbon Dioxide Level 24 mmol/L (21-32) Anion Gap 10 (6-14) Blood Urea Nitrogen 22 mg/dL (8-26) Creatinine 1.5 mg/dL (0.7-1.3) Estimated GFR (Cockcroft-Gault) 46.7 Glucose Level 212 mg/dL (70-99) Calcium Level 8.4 mg/dL (8.5-10.1) Results All relevant outside records, renal labs, imaging studies, telemetry/EKG's were reviewed. Justicifation of Admission Dx: Justifications for Admission: Justification of Admission Dx: Yes ALBANIA FARLEY MD Nov 22, 2020 09:56
[2020-11-22 10:56] VITALS: BP 130/74
[2020-11-22] MEDS ORDERED: GABA-585 PO (11:54)
[2020-11-22] MEDS ORDERED: CYCL10TA2 PO (11:54)
[2020-11-22] MEDS ORDERED: GABAPENTIN 100 MG CAPSULE. PO SCH (12:00)
[2020-11-22] MEDS ORDERED: CYCLOBENZAPRINE 10 MG TABLET. PO PRN (12:00)
--- NOTE | 2020-11-22 13:00 | NUR ---
Discharge Note: Patient was discharged home with self care. Patients daughter at the bedside at the time of discharge education. Patients IV was discontinued without any complications by WINNIE. Patient was given discharge summary/instructions follow-ups, and educational material. Patients prescriptions were sent to patients preferred pharmacy. Patient did not have any further questions or concerns. Patient was taken down to the main entrance via wheelchair with all personal belongings accompanied by WINNIE Beltran, where his daughter was waiting for him to take him home.
--- NOTE | 2020-11-22 17:17 | NUR ---
SW following for discharge planning. Spoke with RN and reviewed chart. Pt discharged home home today, 11/22 self-care. No further SW needs
--- NOTE | 2020-11-22 18:09 | PDOC3 ---
Discharge Summary Visit Information Date of Admission: Nov 20, 2020 Date of Discharge: Nov 22, 2020 Admitting Diagnosis Comment: Acute renal failure secondary to most likely vasomotor etiology Left arm pain Chest pain equivalent with a heart score of 5 History of CAD status post PCI and stent approximately 5 years ago History of essential hypertension History of diabetes mellitus type 2 uncontrolled with his last hemoglobin A1c being in about the 9 range History of hypothyroidism Tobacco abuse Final Diagnosis Problems Medical Problems: (1) Acute renal insufficiency Status: Acute (2) Left arm pain Status: Acute Acute renal failure secondary to most likely vasomotor etiology improved Severe dehydratio resolved Left arm pain secondary to trauma improved Chest pain equivalent with a heart score of 5 History of CAD status post PCI and stent approximately 5 years ago History of essential hypertension History of diabetes mellitus type 2 uncontrolled with his last hemoglobin A1c being in about the 9 range History of hypothyroidism Tobacco abuse Brief Hospital Course Allergies Allergies Coded Allergies Type Severity Reaction Last Updated Verified sitagliptin Allergy Intermediate Hives 11/19/17 Yes Vital Signs Vital Signs Date Time Temp Pulse Resp B/P (MAP) Pulse Ox O2 Delivery O2 Flow Rate FiO2 11/22/20 11:24 Room Air 11/22/20 10:56 97.8 74 18 130/74 (92) 96 97.8 Lab Results Laboratory Tests Test 11/20/20 20:02 11/20/20 21:25 11/20/20 22:20 11/21/20 09:05 Troponin I Quantitative < 0.017 ng/mL (0.000-0.055) < 0.017 ng/mL (0.000-0.055) Glucose (Fingerstick) 283 mg/dL (70-99) 195 mg/dL (70-99) Test 11/21/20 09:30 11/21/20 11:56 11/21/20 17:05 11/22/20 07:10 Sodium Level 137 mmol/L (136-145) Potassium Level 4.4 mmol/L (3.5-5.1) Chloride Level 102 mmol/L (98-107) Carbon Dioxide Level 26 mmol/L (21-32) Anion Gap 9 (6-14) Blood Urea Nitrogen 25 mg/dL (8-26) Creatinine 1.6 mg/dL (0.7-1.3) Estimated GFR (Cockcroft-Gault) 43.3 Glucose Level 242 mg/dL (70-99) Calcium Level 9.0 mg/dL (8.5-10.1) Triglycerides Level 217 mg/dL (0-150) Cholesterol Level 106 mg/dL (0-200) LDL Cholesterol, Calculated 37 mg/dL (0-100) VLDL Cholesterol, Calculated 43 mg/dL (0-40) Non-HDL Cholesterol Calculated 80 mg/dL (0-129) HDL Cholesterol 26 mg/dL (40-60) Cholesterol/HDL Ratio 4.1 Glucose (Fingerstick) 263 mg/dL (70-99) 189 mg/dL (70-99) 226 mg/dL (70-99) Test 11/22/20 07:15 11/22/20 10:53 Sodium Level 137 mmol/L (136-145) Potassium Level 4.3 mmol/L (3.5-5.1) Chloride Level 103 mmol/L (98-107) Carbon Dioxide Level 24 mmol/L (21-32) Anion Gap 10 (6-14) Blood Urea Nitrogen 22 mg/dL (8-26) Creatinine 1.5 mg/dL (0.7-1.3) Estimated GFR (Cockcroft-Gault) 46.7 Glucose Level 212 mg/dL (70-99) Calcium Level 8.4 mg/dL (8.5-10.1) Glucose (Fingerstick) 226 mg/dL (70-99) Laboratory Tests Test 11/22/20 07:10 11/22/20 07:15 11/22/20 10:53 Glucose (Fingerstick) 226 mg/dL (70-99) 226 mg/dL (70-99) Sodium Level 137 mmol/L (136-145) Potassium Level 4.3 mmol/L (3.5-5.1) Chloride Level 103 mmol/L (98-107) Carbon Dioxide Level 24 mmol/L (21-32) Anion Gap 10 (6-14) Blood Urea Nitrogen 22 mg/dL (8-26) Creatinine 1.5 mg/dL (0.7-1.3) Estimated GFR (Cockcroft-Gault) 46.7 Glucose Level 212 mg/dL (70-99) Calcium Level 8.4 mg/dL (8.5-10.1) Brief Hospital Course History of Present Illness Patient is a 65 year old male with past medical history of essential hypertension diabetes type 2 PCI and stent approximately 5 years ago who was in his usual state of health until about a month ago when he started complaining of left shoulder pain. The patient denies any trauma to the affected area the patient denies any recent changes to his activity level no heavy objects have been lifted and he has not engaged in a new exercise program. Patient says that he feels some tingling radiating from his neck down to his arm. Sensation of electric shock, the patient does not refer precordial pain no angina type of symptoms when the pain a flex him he rates it at a 8 out of 10 lasting less than 5 minutes with associated diaphoresis but no sensation of impending doom no nausea no vomiting associated with the symptoms. The other symptom that he also associates with this discomfort is feeling lightheaded especially when going from the sitting position to the up port position. He denies paroxysmal nocturnal dyspnea no orthopnea no peripheral edema no odynophagia no dysphagia no slurred speech no blurred vision no headaches were reported by the patient either. The patient denies any recent travels no neck stiffness no meningeal signs. Serendipitously he was found to have an increased creatinine level reason why he was admitted for observation. The patient has been taking some aspirin and meloxicam at home for this discomfort but it does not sound like he has been abusing the medication. Plan of care has been explained in detail and the laboratory data has been also explained in detail to the patient. All of his concerns were addressed to the best of my abilities His heart score was calculated in the emergency department he has a score of 5 reason why we were asked to admit and rule him out as well and even though he denies any chest discomfort 11/21: No acute events reported overnight, case discussed with nursing staff patient in no acute distress no complaints during my visit 11/22: Patient had a very uneventful hospital stay and he will benefit from continued close follow-up in the outpatient setting with his primary care physician.to address his diabetes which seems to be not optimized at the present time. Counseling done prior to discharge regarding the importance of nutrition and adherence to carb counting adherence to medications. He was given a muscle relaxant and gabapentin in order to address his neck discomfort and also his neuropathy. Shoulder x-ray and cervical x-ray was done with negative osseous pathology. He was in good spirits to be discharged home reassurance was provided his discomfort was unlikely to be cardiac in nature. As far as his renal function goes this recovered after gentle hydration. Due to his symptoms the patient has had decreased oral intake and this probably play a role. This was discussed with our nephrology product consultant as well prior to discharge. Family member at bedside all of her concerns were addressed to the best of my abilities greater than 35 minutes were spent in the discharge process the patient counseling coordination of care and arrangements for safe discharge Assessment Assessment EXAM: Cervical spine, 3 views. HISTORY: Radiculopathy. COMPARISON: None. FINDINGS: 3 views of the cervical spine are obtained. There is mild cervical kyphosis. There is minimal retrolisthesis of C4 on C5 and C5 on C6. There is degenerative endplate remodeling with disc space narrowing and anterior osteophytosis primarily at C4-C7. There is multilevel facet arthropathy. No fracture is seen. IMPRESSION: 1. Multilevel degenerative change, described above. 2. No acute osseous finding. Electronically signed by: Rosi Samaniego MD (11/21/2020 1:04 PM) [id number] IMAGING REPORT Signed PATIENT: ENRIQUE GILLESPIE ACCOUNT: [id number] : 1955 LOCATION: ER AGE: 65 SEX: M EXAM STATUS: REG ER ORD. PHYSICIAN: YIMI FRAGA APRN REASON: PAIN PROCEDURE: SHOULDER 2+V LEFT EXAM: Chest, single view; shoulder, 3 views. HISTORY: Pain. Shortness of air. COMPARISON: 01/15/2016. FINDINGS: Chest: A frontal view of the chest is obtained. There is no infiltrate, pleural effusion or pneumothorax. The heart is normal in size. Left shoulder: 3 views of the left shoulder obtained. There is no fracture, dislocation or subluxation. IMPRESSION: No acute pulmonary or osseous finding. Discharge Information Condition at Discharge: Improved Follow Up: Weeks Disposition/Orders: D/C to Home Scheduled Albuterol Sulfate (Ventolin Hfa Inhaler) 18 Gm Hfa.aer.ad, 2 PUFF INH QID for FOR ASTHMA, Ref 0 (Reported) Entered as Reported by: SIVA WASHINGTON on 08/13/14827 Last Action: Converted on 11/20/201817 by TENISHA LOJA MD Atenolol (Atenolol) 25 Mg Tablet, DAILY, (Reported) Entered as Reported by: HERMAN DOVER on 03/25/142012 Last Action: Continued on 11/20/201817 by TENISHA LOJA MD Atorvastatin Calcium (Atorvastatin Calcium) 40 Mg Tablet, HS, (Reported) Entered as Reported by: HERMAN DOVER on 03/25/142012 Last Action: Continued on 11/20/201817 by TENISHA LOJA MD Bupropion Hcl (Wellbutrin Xl) 300 Mg Tab.er.24h, 300 MG PO DAILY, (Reported) Entered as Reported by: SIVA WASHINGTON on 08/13/14827 Last Action: Converted on 11/20/201817 by TENISHA LOJA MD Escitalopram Oxalate (Lexapro) 20 Mg Tablet, 40 MG PO DAILY for ANTI-DEPRESSANT, Ref 0 (Reported) Entered as Reported by: SIVA WASHINGTON on 08/13/14827 Last Action: Converted on 11/20/201817 by TENISHA LOJA MD Gabapentin (Gabapentin ) 100 Mg Capsule, 100 MG PO TID for neuropathy for 30 Days, #90 Prescribed by: TENISHA LOJA MD on 11/22/20 1154 Levothyroxine Sodium (Levothyroxine Sodium) 50 Mcg Tablet, DAILY, (Reported) Entered as Reported by: HERMAN DOVER on 03/25/142012 Last Action: Continued on 11/20/201817 by TENISHA LOJA MD Lisinopril (Lisinopril) 20 Mg Tablet, 1 TAB PO DAILY, #30 Ref 5 (Reported) Entered as Reported by: WAGNER CASANOVA on 11/10/16 0644 Last Action: Continued on 11/20/201817 by TENISHA LOJA MD Metformin Hcl (Metformin Hcl) 500 Mg Tablet, 1,000 BID, (Reported) HOLD for 48 hr. Restart 11/13. Entered as Reported by: HERMAN DOVER on 03/25/142012 Last Action: HELD on 11/20/201815 by TENISHA LOJA MD Multivitamin (Multi-Day Vitamins) 1 Each Tablet, 1 EACH PO DAILY, (Reported) Entered as Reported by: SIVA WASHINGTON on 08/13/14827 Last Action: Converted on 11/20/201817 by TENISHA LOJA MD Oxycodone/Apap 7.5-325 (Percocet 7.5-325 Mg Tablet ) 1 Each Tablet, 1 TAB PO Q4HRS for PAIN, #25 (Reported) Entered as Reported by: FLETCHER PALMA on 11/22/17 111 Last Action: Continued on 11/20/201817 by TENISHA LOJA MD Scheduled PRN Cyclobenzaprine Hcl (Cyclobenzaprine Hcl) 10 Mg Tablet, 10 MG PO Q8HRS PRN for MUSCLE SPASMS for 10 Days, #30 Prescribed by: TENISHA LOJA MD on 11/22/20 1154 Miscellaneous Medications Aspirin (Aspir 81) 81 Mg Tablet.dr, 81 MG PO, (Reported) Entered as Reported by: SIVA WASHINGTON on 08/13/14 0828 Last Action: Continued on 11/20/201816 by TENISHA LOJA MD Docusate Sodium (Stool Softener) 50 Mg Capsule, 50 MG PO, (Reported) Entered as Reported by: FLETCHER PALMA on 11/22/17 1114 Justicifation of Admission Dx: Justifications for Admission: Justification of Admission Dx: Yes TENISHA LOJA MD Nov 22, 2020 18:09
== END 2020-11-22 13:00 | disposition home or self-care (01) | DRG 391 ==
LOC: ER 16:01 → 5 NORTH 17:30 → OBSVTOIN 11-21 17:46
PROVIDERS: ADMIT Internal Medicine; ATTEND Internal Medicine
DX: K21.9 Gastro-esophageal reflux disease without esophagitis (principal); N17.0 Acute kidney failure with tubular necrosis; E86.0 Dehydration; E11.22 Type 2 diabetes mellitus with diabetic chronic kidney disease; E03.9 Hypothyroidism, unspecified; E78.00 Pure hypercholesterolemia, unspecified; E78.5 Hyperlipidemia, unspecified; F17.210 Nicotine dependence, cigarettes, uncomplicated; I25.10 Atherosclerotic heart disease of native coronary artery without angina pectoris; I25.2 Old myocardial infarction; I25.82 Chronic total occlusion of coronary artery; J44.9 Chronic obstructive pulmonary disease, unspecified; M54.10 Radiculopathy, site unspecified; N28.1 Cyst of kidney, acquired; N40.0 Benign prostatic hyperplasia without lower urinary tract symptoms; T75.4XXA Electrocution, initial encounter; W01.0XXA Fall on same level from slipping, tripping and stumbling without subsequent striking against object, initial encounter; W86.8XXA Exposure to other electric current, initial encounter; Z95.5 Presence of coronary angioplasty implant and graft; Z96.659 Presence of unspecified artificial knee joint; F32.9 Major depressive disorder, single episode, unspecified; G47.33 Obstructive sleep apnea (adult) (pediatric); M19.90 Unspecified osteoarthritis, unspecified site; Z88.8 Allergy status to other drugs, medicaments and biological substances; Z71.6 Tobacco abuse counseling; I12.9 Hypertensive chronic kidney disease with stage 1 through stage 4 chronic kidney disease, or unspecified chronic kidney disease; N18.30 Chronic kidney disease, stage 3 unspecified
CPT/HCPCS: 36415; 71045; 72040; 73030; 80048; 80053; 80061; 80307; 82962; 83880; 84443; 84484; 85025; 85610; 93005; 93306; 94640; 94760; 96360; 96361; 96372; 99285; G0378; G0379; J1650; J1815; J7030; J7613

== ENCOUNTER → 2020-12-26 | Outpatient (CLI) | payer MEDICARE, OTHER ==
[~2020-12-26] MED LIST changes: +CYCL10TA2 PO; +GABA-585 PO; +REGADENOSON 0.4 MG/5 ML DISP.SYRIN. IV ONE
--- NOTE | 2020-12-26 17:01 | RAD ---
MR#: [id number] Date of Study: 12/26/2020 Ordering Physician: RUMA CANO, Referring Physician: BRETT MATIAS Tech: MARY Mora ARRT (R) (N) APPROVED REPORT Test Type: Pharmacological Stress Nurse/Tech: Neeta Porras Indications: CAD Cardiac History: SC w/ PTCA in 2013, See EMR. Medications: Insulin, See EMR. Medical History: COPD, Smoker, See EMR. Resting ECG: SR Resting Heart Rate: 92 bpm Resting Blood Pressure: 114/66mmHg Pretest Chest Pain: No chest pain Nurse/Tech Notes Lungs CTA, Heart tones regular. Consent: The procedure was explained to the patient in lay terms. Informed consent was witnessed. Ernesto eout was entered into [employer]. History and Stress Test performed by MARY Mora ARRT (R) (N) Pharm. Details Pharmacologic stress testing was performed using 0.4mg per 5ml of regadenoson given intravenously ove r 7-10 seconds. Stress Symptoms Dyspnea POST EXERCISE Reason for Termination: Infusion complete Max HR: 102 bpm Max Blood Pressure: 129/54mmHg Blood Pressure response to exercise: Normal blood pressure response during stress. Heart Rate response to exercise: WNL Chest Pain: No. Arrhythmia: No. ST Change: No. INTERPRETATION Stress EKG Conclusion: Baseline EKG showed sinus rhythm. No ischemic changes at peak stress. No arr hythmias. Imaging Protocol IMAGE PROTOCOL: Rest Tc-99m/stress Tc-99m 1 day Rest: Stress: Viability: Radiopharm.Tc99m AuujrqbzhNo76p Sestamibi Rhmy34tZz 31.3mCi Img Date 12/26/2020 12/26/2020 Inj-Img Pdpx62qkr. 60min. Rest Admin Site:IV - Right AntecubitalAdministrator:MARY Mora ARRT (R)(N) Stress Admin Site: IV - Right AntecubitalAdministrator: MARY Mora ARRT (R)(N) STRESS DATA End Diast. Vol.90.0mlLVEDV index BSA37.0ml End Syst. Vol.23.0mlLVESV index BSA9.0ml Myocardial Foix636.0gEject. Xyrtsgmf26.0% Stress Scores Regional WT0.00Summed WT4.00 Regional WM0.00Summed WM2.00 Study quality was good. Left Ventricular size was Normal at Rest and Stress. Lung uptake was . Left Ventricular ejection fraction is 70%. The rest and stress images show normal perfusion, normal contraction and thickening. LV Perf. Quant 17 Seg. SSS0.00 17 Seg. SRS6.00 17 Seg. SDS0.00 Stress Defect Extent (% LAD)0.00Rest Defect Extent (% LAD)0.60Rev. Defect Extent (% LAD)0.00 Stress Defect Extent (% LCX) 0.00Rest Defect Extent (% LCX)0.00Rev. Defect Extent (% LCX)0.00 Stress Defect Extent (% RCA)0.00Rest Defect Extent (% RCA)32.20Rev. Defect Extent (% RCA)0.00 Stress Defect Extent (% ALTAGRACIA)0.00Rest Defect Extent (% ALTAGRACIA)8.90Rev. Defect Extent (% ALTAGRACIA)0.00 Conclusion 1. Regadenoson cardioisotope stress test did not show any evidence of ischemia or infarct. 2. Normal left ventricular systolic function with ejection fraction calculated at 70%. 3. Low risk for cardiac events. Signed by : Ruma Cano, Electronically Approved : 12/26/2020 17:00:45
== END ==
LOC: NM 09:31
PROVIDERS: ATTEND Internal Medicine Cardiovascular Disease
DX: I25.10 Atherosclerotic heart disease of native coronary artery without angina pectoris (principal)
CPT/HCPCS: 78452; 93017; A9500; J2785

== ENCOUNTER → 2020-12-26 | Outpatient (CLI) | payer MEDICARE, OTHER ==
[~2020-12-26] MED LIST changes: -REGADENOSON 0.4 MG/5 ML DISP.SYRIN. IV ONE
[2020-12-26 10:44] LABS: HEMATOCRIT 33.5 % (39.0-53.0); HEMOGLOBIN 11.3 g/dL (13.0-17.5)
[2020-12-26 10:45] LABS: BILIRUBIN,URINE NEGATIVE (NEG); CLARITY,URINE CLEAR; COLOR,URINE YELLOW; NITRITE,URINE NEGATIVE (NEG); PROTEIN,URINE NEGATIVE (NEG-TRACE); UROBILINOGEN,URINE 0.2 mg/dL (0.2 mg/dL)
[2020-12-26 11:00] LABS: CREATININE,RANDOM URINE 170.5 mg/dL (Not Establ.)
[2020-12-26 11:06] LABS: BACTERIA,URINE 0 /HPF (0-FEW); RBC,URINE 0 /HPF (0-2); WBC,URINE 0 /HPF (0-4)
[2020-12-26 11:17] LABS: ALBUMIN 3.7 g/dL (3.4-5.0); CALCIUM 9.8 mg/dL (8.5-10.1); GFR 33.5; PHOSPHORUS 3.7 mg/dL (2.6-4.7)
[2020-12-27 00:10] LABS: CALCIUM PTH 9.8 mg/dL (8.6-10.2); CREATININE PTH 1.93 mg/dL (0.76-1.27); PHOSPHORUS PTH 3.8 mg/dL (2.8-4.1); PTH INTACT 28 pg/mL (15-65)
[2020-12-27 01:10] LABS: CREAT RD UR 156.3 mg/dL (Not Estab.); MICROALB RD UR 21.4 ug/mL (Not Estab.)
== END ==
LOC: LAB 10:15
PROVIDERS: ATTEND Internal Medicine Nephrology
DX: N19 Unspecified kidney failure (principal); E78.00 Pure hypercholesterolemia, unspecified; N28.1 Cyst of kidney, acquired; I12.9 Hypertensive chronic kidney disease with stage 1 through stage 4 chronic kidney disease, or unspecified chronic kidney disease; Z79.82 Long term (current) use of aspirin; Z79.899 Other long term (current) drug therapy
CPT/HCPCS: 36415; 80069; 81001; 82043; 82306; 82570; 83970; 84156; 85014; 85018

== ENCOUNTER → 2021-07-03 | Outpatient (CLI) | payer MEDICARE, OTHER ==
--- NOTE | 2021-07-03 17:17 | CARD ---
MR#: [id number] Date of Study: 07/03/2021 Ordering Physician: RUMA CANO, Referring Physician: Jose E MATIAS: Sunny Snow [facility] APPROVED REPORT EXAM: Two-dimensional and M-mode echocardiogram with Doppler and color Doppler. Other Information Quality : FairHR: 94bpm Rhythm : NSRTechnically limited study due to body habitus and smoking. INDICATION Cardiac Disease: CAD RISK FACTORS Hypertension Obesity Hyperlipidemia Diabetes Smoking 2D DIMENSIONS Left Atrium(2D)2.8 (1.6-4.0cm)IVSd1.7 (0.7-1.1cm) Aortic Root(2D)4.1 (2.0-3.7cm)LVDd4.2 (3.9-5.9cm) LVOT Diameter2.0 (1.8-2.4cm)PWd1.7 (0.7-1.1cm) LVDs2.3 (2.5-4.0cm)FS (%) 46.5 % SV61.9 ml Aortic Valve AoV Peak Mario.152.5cm/sAoV VTI25.7cm AO Peak GR.9.3mmHgLVOT Peak Mario.140.9cm/s AO Mean GR.5mmHgAVA (VMAX)2.98cm2 Mitral Valve MV E Ailwhitt07.4cm/sMV E Peak Gr.5mmHg MV DECEL [id number] A Bfhjvcwr44.6cm/s MV E Mean Gr.2mmHgE/A Ratio0.7 Pulmonary Valve PV Peak Rkfirmxl668.0cm/s Tricuspid Valve TR P. Bgqnlasn308br/sTR Peak Gr.15mmHg Pulmonary Vein S1 Fvxpytvq26.8cm/sD2 Kfrtdzmf48.8cm/s LEFT VENTRICLE The left ventricle is normal size. There is mild concentric left ventricular hypertrophy. The left ve ntricular systolic function is normal and the ejection fraction is within normal range. Left ventricu lar ejection fraction is 55 to 60%. There is normal LV segmental wall motion. Transmitral Doppler omar w pattern is Grade I-abnormal relaxation pattern. No left ventricle thrombus noted on this study. The re is no ventricular septal defect visualized. There is no left ventricular aneurysm. There is no mas s noted in the left ventricle. RIGHT VENTRICLE The right ventricle is normal size. There is normal right ventricular wall thickness. The right ventr icular systolic function is normal. ATRIA The left atrium size is normal. The right atrium size is normal. The interatrial septum is intact wit h no evidence for an atrial septal defect or patent foramen ovale as noted on 2-D or Doppler imaging. AORTIC VALVE The aortic valve is mildly sclerotic. Doppler and Color Flow revealed no significant aortic regurgita tion. There is no significant aortic valvular stenosis. There is no aortic valvular vegetation. MITRAL VALVE The mitral valve is normal in structure and function. There is no evidence of mitral valve prolapse. There is no mitral valve stenosis. Doppler and Color-flow revealed trace to mild mitral regurgitation . TRICUSPID VALVE The tricuspid valve is normal in structure and function. Doppler and Color Flow revealed trace tricus pid regurgitation. There is no tricuspid valve prolapse or vegetation. There is no tricuspid valve st enosis. PULMONIC VALVE The pulmonary valve is normal in structure and function. Doppler and Color Flow revealed no pulmonic valvular regurgitation. There is no pulmonic valvular stenosis. GREAT VESSELS Aortic root is mildly dilated at 4.1 cm. The ascending aorta is normal in size. The pulmonary artery is normal. The IVC is normal in size and collapses >50% with inspiration. PERICARDIAL EFFUSION There is no pleural effusion. There is no evidence of significant pericardial effusion. Critical Notification Critical Value: No <Conclusion> The left ventricle is normal size. The left ventricular systolic function is normal and the ejection fraction is within normal range. Left ventricular ejection fraction is 55 to 60%. There is mild concentric left ventricular hypertrophy. Doppler and Color Flow revealed no significant aortic regurgitation. There is no significant aortic valvular stenosis. Doppler and Color-flow revealed trace to mild mitral regurgitation. Doppler and Color Flow revealed trace tricuspid regurgitation. Aortic root is mildly dilated at 4.1 cm. Signed by : Shadi Jordan MD Electronically Approved : 07/03/2021 17:16:44
== END ==
LOC: ECHO 09:39
PROVIDERS: ATTEND Internal Medicine Cardiovascular Disease
DX: I08.0 Rheumatic disorders of both mitral and aortic valves (principal); I77.819 Aortic ectasia, unspecified site; I25.10 Atherosclerotic heart disease of native coronary artery without angina pectoris
CPT/HCPCS: 93306

== ENCOUNTER 2021-08-23 23:57 | Emergency (ER) | payer MEDICARE, OTHER ==
[~2021-08-23] VITALS: Ht 185.4 cm; Wt 115.9 kg
--- NOTE | 2021-08-24 01:28 | EKG ---
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
[2021-08-24] MEDS ORDERED: ACETAMINOPHEN 500 MG TABLET PO ONE (01:30)
[2021-08-24] MEDS ORDERED: IV NORMAL SALINE 1000ML BAG 1,000 ML IV ONE (01:30)
[2021-08-24 01:36] LABS: BASO # 0.1 x10^3/uL (0.0-0.2); BASO % 1 % (0-3); EOS # 0.2 x10^3/uL (0.0-0.7); EOS % 2 % (0-3); HEMOGLOBIN 12.1 g/dL (13.0-17.5); LYMPH # 1.1 x10^3/uL (1.0-4.8); LYMPH % 14 % (24-48); MEAN CORPUSCULAR HEMOGLOBIN 32 pg (25-35); MEAN CORPUSCULAR HGB CONC 35 g/dL (31-37); MEAN CORPUSCULAR VOLUME 92 fL (79-100); MONO # 0.8 x10^3/uL (0.0-1.1); MONO % 11 % (0-9); NEUT # 5.5 x10^3/uL (1.8-7.7); NEUT % 72 % (31-73); PLATELET COUNT 194 x10^3/uL (140-400); RED BLOOD COUNT 3.79 x10^6/uL (4.30-5.70); RED CELL DISTRIBUTION WIDTH 13.9 % (11.5-14.5); WHITE BLOOD COUNT 7.6 x10^3/uL (4.0-11.0)
[2021-08-24 01:46] LABS: CREATININE 2.1 mg/dL (0.7-1.3); GFR 31.6; POTASSIUM 5.1 mmol/L (3.5-5.1)
[2021-08-24 01:52] LABS: ALBUMIN 3.5 g/dL (3.4-5.0); ALBUMIN/GLOBULIN RATIO 0.9 (1.0-1.7); MAGNESIUM 1.6 mg/dL (1.8-2.4); TOTAL BILIRUBIN 0.4 mg/dL (0.2-1.0); TOTAL PROTEIN 7.3 g/dL (6.4-8.2)
--- NOTE | 2021-08-24 02:25 | RAD ---
CT HEAD/BRAIN WO History: Reason: headache / Spl. Instructions: / History: Comparison: None. Technique: Noncontrast CT imaging was performed of the head. Exposure: One or more of the following individualized dose reduction techniques were utilized for thi s examination: 1. Automated exposure control 2. Adjustment of the mA and/or kV according to patient size 3. Use of iterative reconstruction technique. Findings: No intracranial hemorrhage. No mass effect. No hydrocephalus. Mild brain parenchymal volume loss. Mild foci of decreased attenuation within the hemispheric white m atter, most often due to chronic microvascular ischemia. Intracranial atheromatous calcifications. Imaged orbits are unremarkable. Imaged paranasal sinuses and mastoid air cells are clear. No acute ca lvarial fracture. Impression: 1. No acute intracranial abnormality. Electronically signed by: Long Rodrigez DO (08/24/2021 2:22 AM) [facility]
--- NOTE | 2021-08-24 02:26 | RAD ---
XR CHEST 1V History: Reason: chest pain, dyspnea / Spl. Instructions: / History: Comparison: November 20, 2020 Findings: No consolidation or pleural effusion. Normal heart size. No pneumothorax. Impression: 1. No acute cardiopulmonary process. Electronically signed by: Long Rodrigez DO (08/24/2021 2:24 AM) [facility] [place]
--- NOTE | 2021-08-24 03:24 | PHYS DOC ---
Past Medical History Past Medical History: Diabetes-Type II, High Cholesterol, Hypertension, Hypothyroid, [facility] Past Surgical History: Other Additional Past Surgical Histo: hernia repair, cardiac stent 2014, carpal tunnel, L KNEE "CLEANED OUT" Smoking Status: Current Every Day Smoker Alcohol Use: Rarely Drug Use: None General Adult EDM: Chief Complaint: HYPERGLYCEMIA HPI: HPI: Patient is a 66 year old male here with multiple complaints. He reports several weeks of various symptoms. He reports several months of hyperglycemia. He admits to noncompliance with his ADA diet. He reports poor sleep, frequent waking in the middle of night, increased nocturnal urination. He also reports several weeks worth of cough, mostly dry, occasionally with white sputum. This is actually something he has had for many years. He reports "a little" shortness of breath, which is also been present intermittently for years, no worse today. He reports "a little" chest pain, which has been present only with coughing episode for several weeks, though he denies current chest pain denies pressure. Denies dizziness. Denies weight loss. Denies fevers or chills. Denies abdominal pain, nausea vomiting, diarrhea, constipation. He reports having a headache intermittently for the past few weeks. He admits that this headache is mild. He has not taken anything at all for this pain. Denies thunderclap headache. Denies vision loss. Denies dizziness or vertigo symptoms. Denies numbness tingling or motor weakness. No acute changes in headache symptoms today. Besides nocturnal urinary frequency, he denies other urinary symptoms. Denies anorexia. He actually had outpatient labs drawn a few days ago, and he is scheduled to follow-up with his primary care physician on 27 August, so in a few days. He reports that he is anxious about awaiting the results of his labs, and he was scared and decided to come to the ER today for this. He denies recent travel or surgery or hospitalization. He denies recent sick contacts. Review of Systems: Review of Systems: Constitutional: Denies fever or chills. [] Eyes: Denies change in visual acuity. [] HENT: Denies nasal congestion or sore throat. [] Respiratory: Reports chronic cough and shortness of breath, unchanged today. Cardiovascular: Reports chest pain only with coughing episodes, no current chest pain. GI: Denies abdominal pain, nausea, vomiting, bloody stools or diarrhea. [] : Denies dysuria. [] Musculoskeletal: Denies back pain or joint pain. [] Integument: Denies rash. [] Neurologic: Denies headache, focal weakness or sensory changes. [] Endocrine: Does report polyuria and polydipsia symptoms. Hyperglycemia and chronically uncontrolled diabetes mellitus. Lymphatic: Denies swollen glands. [] Psychiatric: Denies depression or anxiety. [] Heart Score: C/O Chest Pain: No Risk Factors: Risk Factors: DM, Current or recent (<one month) smoker, HTN, HLP, family history of CAD, obesity. Risk Scores: Score 0 - 3: 2.5% MACE over next 6 weeks - Discharge Home Score 4 - 6: 20.3% MACE over next 6 weeks - Admit for Clinical Observation Score 7 - 10: 72.7% MACE over next 6 weeks - Early Invasive Strategies Current Medications: Current Medications Medications (Trade) Dose Ordered Sig/Geoffrey Start Time Stop Time Status Last Admin Dose Admin Acetaminophen (Tylenol) 1,000 mg 1X ONCE 08/24/21 01:30 08/24/21 01:31 DC 08/24/21 02:01 1,000 MG Sodium Chloride 1,000 ml @ 1,000 mls/hr 1X ONCE 08/24/21 01:30 08/24/21 02:29 DC 08/24/21 02:01 1,000 MLS/HR Allergies: Allergies: Allergies Coded Allergies Type Severity Reaction Last Updated Verified sitagliptin Allergy Intermediate Hives 11/19/17 Yes Physical Exam: PE: Constitutional: Well developed, well nourished, no acute distress, non-toxic appearance. [] HENT: Normocephalic, atraumatic, bilateral external ears normal, mucous membranes are moist. Eyes: PERRLA, EOMI, conjunctiva normal, no discharge. [] Neck: Normal range of motion, no tenderness, supple, no stridor. [] Cardiovascular:Heart rate regular rhythm, no murmur. +2 radial and posterior tibial pulses bilaterally. [] Lungs & Thorax: Bilateral breath sounds clear to auscultation. No rales, rhonchi or wheezes. No distress. [] Abdomen: Bowel sounds normal, soft, no tenderness, no masses, no pulsatile masses. [] Skin: Warm, dry, no erythema, no rash. [] Back: No tenderness, no CVA tenderness. [] Extremities: No tenderness, no cyanosis, no clubbing, ROM intact, no edema. [] Neurologic: Alert and oriented X 3, normal motor function, normal sensory function, no focal deficits noted. Cranial nerves II through XII grossly intact. 5-5 motor strength in all 4 extremities. No pronator drift, no limb ataxia. Speech is clear and fluent. Psychologic: Affect normal, judgement normal, mood normal. He is pleasant cooperative. [] Current Patient Data: Labs: Laboratory Tests Test 08/24/21 00:11 08/24/21 01:15 08/24/21 01:25 Glucose (Fingerstick) 345 mg/dL (70-99) H SARS-CoV-2 Antigen (Rapid) Negative (NEGATIVE) White Blood Count 7.6 x10^3/uL (4.0-11.0) Red Blood Count 3.79 x10^6/uL (4.30-5.70) L Hemoglobin 12.1 g/dL (13.0-17.5) L Hematocrit 35.0 % (39.0-53.0) L Mean Corpuscular Volume 92 fL (79-100) Mean Corpuscular Hemoglobin 32 pg (25-35) Mean Corpuscular Hemoglobin Concent 35 g/dL (31-37) Red Cell Distribution Width 13.9 % (11.5-14.5) Platelet Count 194 x10^3/uL (140-400) Neutrophils (%) (Auto) 72 % (31-73) Lymphocytes (%) (Auto) 14 % (24-48) L Monocytes (%) (Auto) 11 % (0-9) H Eosinophils (%) (Auto) 2 % (0-3) Basophils (%) (Auto) 1 % (0-3) Neutrophils # (Auto) 5.5 x10^3/uL (1.8-7.7) Lymphocytes # (Auto) 1.1 x10^3/uL (1.0-4.8) Monocytes # (Auto) 0.8 x10^3/uL (0.0-1.1) Eosinophils # (Auto) 0.2 x10^3/uL (0.0-0.7) Basophils # (Auto) 0.1 x10^3/uL (0.0-0.2) Sodium Level 131 mmol/L (136-145) L Potassium Level 5.1 mmol/L (3.5-5.1) Chloride Level 98 mmol/L (98-107) Carbon Dioxide Level 25 mmol/L (21-32) Anion Gap 8 (6-14) Blood Urea Nitrogen 32 mg/dL (8-26) H Creatinine 2.1 mg/dL (0.7-1.3) H Estimated GFR (Cockcroft-Gault) 31.6 BUN/Creatinine Ratio 15 (6-20) Glucose Level 306 mg/dL (70-99) H Calcium Level 9.0 mg/dL (8.5-10.1) Magnesium Level 1.6 mg/dL (1.8-2.4) L Total Bilirubin 0.4 mg/dL (0.2-1.0) Aspartate Amino Transferase (AST) 20 U/L (15-37) Alanine Aminotransferase (ALT) 29 U/L (16-63) Alkaline Phosphatase 88 U/L (46-116) Creatine Kinase 93 U/L (39-308) Troponin I Quantitative < 0.017 ng/mL (0.000-0.055) JY-Bdc-K-Type Natriuretic Peptide 22 pg/mL (0-124) Total Protein 7.3 g/dL (6.4-8.2) Albumin 3.5 g/dL (3.4-5.0) Albumin/Globulin Ratio 0.9 (1.0-1.7) L Thyroid Stimulating Hormone (TSH) 2.272 uIU/mL (0.358-3.74) Laboratory Tests 08/24/21 01:25 Laboratory Tests 08/24/21 01:25 Vital Signs: Vital Signs Date Time Temp Pulse Resp B/P (MAP) Pulse Ox O2 Delivery O2 Flow Rate FiO2 08/24/21 00:40 98.7 105 16 136/76 (96) 98 Room Air 98.7 EKG: EKG: EKG is read at 12 12 Sinus rhythm Rate 96 No STEMI Radiology/Procedures: Radiology/Procedures: IMAGING REPORT Signed PATIENT: ENRIQUE GILLESPIE ACCOUNT: [id number] : 1955 LOCATION: ER AGE: 66 SEX: M EXAM STATUS: REG ER ORD. PHYSICIAN: KRAIG GARCIA DO REASON: chest pain, dyspnea PROCEDURE: PORTABLE CHEST 1V XR CHEST 1V History: Reason: chest pain, dyspnea / Spl. Instructions: / History: Comparison: November 20, 2020 Findings: No consolidation or pleural effusion. Normal heart size. No pneumothorax. Impression: 1. No acute cardiopulmonary process. Electronically signed by: Long Rodrigez DO (08/24/2021 2:24 AM) JASMYNMANDIE DICTATED and SIGNED BY: LONG RODRIGEZ DO DATE: 08/24/[id number] 0 IMAGING REPORT Signed PATIENT: ENRIQUE GILLESPIE ACCOUNT: [id number] : 1955 LOCATION: ER AGE: 66 SEX: M EXAM STATUS: REG ER ORD. PHYSICIAN: KRAIG GARCIA DO REASON: headache PROCEDURE: CT HEAD WO CONTRAST CT HEAD/BRAIN WO History: Reason: headache / Spl. Instructions: / History: Comparison: None. Technique: Noncontrast CT imaging was performed of the head. Exposure: One or more of the following individualized dose reduction techniques were utilized for this examination: 1. Automated exposure control 2. Adjustment of the mA and/or kV according to patient size 3. Use of iterative reconstruction technique. Findings: No intracranial hemorrhage. No mass effect. No hydrocephalus. Mild brain parenchymal volume loss. Mild foci of decreased attenuation within the hemispheric white matter, most often due to chronic microvascular ischemia. Intracranial atheromatous calcifications. Imaged orbits are unremarkable. Imaged paranasal sinuses and mastoid air cells are clear. No acute calvarial fracture. Impression: 1. No acute intracranial abnormality. Electronically signed by: Long Rodrigez DO (08/24/2021 2:22 AM) JASMYNMIRA DICTATED and SIGNED BY: LONG RODRIGEZ DO DATE: 08/24/[id number] 0 Course & Med Decision Making: Course & Med Decision Making Pertinent Labs and Imaging studies reviewed. (See chart for details) I discussed the findings, differential diagnosis and plan of care with the patie nt. He is given IV fluids. P.o. Tylenol was given. His emergency department work-up reveals hyperglycemia but no other obvious acute life-threatening process. Imaging studies are found to be unremarkable. The patient reports feeling better and relieved this information. I explained that is very important that he adhere to compliance with his diet medication regimen as prescribed by his primary care physician. I explained hyperglycemia chronically uncontrolled diabetes may lead to end organ damage and more serious disease processes. He should follow up on the with his primary care physician, as scheduled, to discuss his outpatient labs further. I did discussed strict return precautions. No current indication for admission or further invasive exams at this time. He verbalizes understanding of all instructions given. Dragon Disclaimer: Dragon Disclaimer: This electronic medical record was generated, in whole or in part, using a voice recognition dictation system. Departure Departure Impression: Primary Impression: Hyperglycemia due to diabetes mellitus Additional Impressions: Fatigue Chronic cough Headache Dietary noncompliance Disposition: 01 HOME / SELF CARE / HOMELESS Condition: STABLE Referrals: MAYO CUBA (PCP) Patient Instructions: Diabetes Meal Planning Guide, Hyperglycemia Additional Instructions: Your work-up in the ER today does not demonstrate any acute life-threatening process. Please continue to eat a healthy, [employer] diet, and this will help with your blood sugars. Stay well-hydrated. Return for severe chest pain, severe shortness of breath, acute changes in chronic cough or shortness of breath, fall, head injury, focal weakness, numbness or tingling, fever of 100.4 or higher, severe abdominal pain, uncontrolled vomiting or any other concerns. Please follow-up with your primary care physician at your scheduled appointment this week. Continue to take your medications as directed. KRAIG GARCIA DO Aug 24, 2021 03:24
[2021-08-24 04:05] VITALS: BP 169/79
--- NOTE | 2021-08-25 16:24 | NUR ---
IP: Informed pt of negative covid test. Pt verbalized understanding.
== END 2021-08-24 04:37 | disposition home or self-care (01) ==
LOC: ER 23:57
DX: E11.65 Type 2 diabetes mellitus with hyperglycemia (principal); Z91.11 Patient's noncompliance with dietary regimen; R51.9 Headache, unspecified; R05.3 Chronic cough; R53.83 Other fatigue; E78.00 Pure hypercholesterolemia, unspecified; I10 Essential (primary) hypertension; E03.9 Hypothyroidism, unspecified; I25.2 Old myocardial infarction; F17.200 Nicotine dependence, unspecified, uncomplicated; Z20.822 Contact with and (suspected) exposure to COVID-19; Z88.8 Allergy status to other drugs, medicaments and biological substances
CPT/HCPCS: 36415; 70450; 71045; 80053; 82550; 82962; 83735; 83880; 84443; 84484; 85025; 87426; 93005; 96360; 99285; J7030; U0003; U0005

== ENCOUNTER → 2022-01-06 | Outpatient (CLI) | payer MEDICARE, OTHER ==
[~2022-01-06] MED LIST changes: +CYCL10TA19 PO; -CYCL10TA2 PO; -LISI-517; +LISI5TAB15; +REGADENOSON 0.4 MG/5 ML DISP.SYRIN. IV ONE
--- NOTE | 2022-01-06 17:10 | RAD ---
MR#: [id number] Date of Study: 01/06/2022 Ordering Physician: RUMA CANO, Referring Physician: BRETT MATIAS Tech: MARY Mora, DORA (R) (N) APPROVED REPORT Test Type: Pharmacological Stress Nurse/Tech: MARY GRACE LANGFORD Test Indications: CAD Cardiac History: CAD, STENT,SMOKER, HTN- SEE EMR Medications: SEE EMR Medical History: SEE EMR Resting ECG: SR W/ ST/T WAVE ABNORMALITY PER EKG Resting Heart Rate: 90 bpm Resting Blood Pressure: 115/67mmHg Pretest Chest Pain: No chest pain Nurse/Tech Notes S1,S2, LUNGS CLEAR/DIMINISHED BASES. VSS. DENIED CHEST PAIN OR SOA AT THIS TIME. Consent: The procedure was explained to the patient in lay terms. Informed consent was witnessed. Ernesto eout was entered into [employer]. History and Stress Test performed by RT Ailin EmeryR) (N) Pharm. Details Pharmacologic stress testing was performed using 0.4mg per 5ml of regadenoson given intravenously ove r 7-10 seconds. Stress Symptoms PT C/O A BRIEF EPISODE OF CHEST PAIN DURING INITIAL TESTING, BP DROPPED TO 84/48. SYMPTOMS RESOLVED Q UICKLY AND NO FURTHER COMPLAINTS. POST EXERCISE Reason for Termination: Infusion complete Max HR: 106 bpm Max Blood Pressure: 117/56mmHg Blood Pressure response to exercise: Abnormal blood pressure response during stress. Heart Rate response to exercise: WNL Chest Pain: . BRIEF Arrhythmia: . NO SIGNIFICANT CHANGES FROM BASELINE EKG- NOTE V LEADS INTERPRETATION Stress EKG Conclusion: Baseline EKG showed sinus rhythm. No ischemic changes at peak stress. No arr hythmias. Imaging Protocol IMAGE PROTOCOL: Rest Tc-99m/stress Tc-99m 1 day Rest: Stress: Viability: Radiopharm.Tc99m [id number] Sestamibi Dose9.1mCi 31mCi Img Date 01/06/2022 01/06/2022 Inj-Img [id number]. 60min. Rest Admin Site:IV - Right AntecubitalAdministrator:RT Rupert (R)(N) Stress Admin Site: IV - Right AntecubitalAdministrator: RT Rupert (R)(N) STRESS DATA End Diast. Vol.92.0mlLVEDV index BSA39.0ml End Syst. Vol.29.0mlLVESV index BSA12.0ml Myocardial Tnwm108.0gEject. Fntojkfj92.0% Stress Scores Regional WT2.00Summed WT11.00 Regional WM0.00Summed WM1.00 Study quality was good. Left Ventricular size was Normal at Rest and Stress. Lung uptake was . Left Ventricular ejection fraction is 71%. The rest and stress images show normal perfusion, normal contraction and thickening. LV Perf. Quant 17 Seg. SSS0.00 17 Seg. SRS0.00 17 Seg. SDS0.00 Stress Defect Extent (% LAD)0.00Rest Defect Extent (% LAD)0.00Rev. Defect Extent (% LAD)0.00 Stress Defect Extent (% LCX) 0.00Rest Defect Extent (% LCX)0.00Rev. Defect Extent (% LCX)0.00 Stress Defect Extent (% RCA)0.00Rest Defect Extent (% RCA)0.00Rev. Defect Extent (% RCA)0.00 Stress Defect Extent (% ALTAGRACIA)0.00Rest Defect Extent (% ALTAGRACIA)0.00Rev. Defect Extent (% ALTAGRACIA)0.00 Conclusion 1. Regadenoson cardioisotope stress test did not show any evidence of ischemia or infarct. 2. Normal left ventricular systolic function with ejection fraction calculated at 71%. 3. Low risk for cardiac events. Signed by : Ruma Cano, Electronically Approved : 01/06/2022 17:10:11
--- NOTE | 2022-01-07 11:43 | RAD ---
MR#: [id number] Date of Study: 01/06/2022 Ordering Physician: RUMA RUCKER, Referring Physician: RUMA RUCKER, Tech: Alberto Palacio MBA, RDMS, RVT, RDCS, RTR APPROVED REPORT Patient Location: OUT-PATIENT Indications Rest Pain:Bilaterally VELOCITY AND DOPPLER WAVEFORM ANALYSIS RIGHT cm/secWaveformSeverity LEFT cm/secWaveform Severity dCFA 137.0TriphasicdCFA 150.0Triphasic Prof Fem Art. 102.0BiphasicProf Fem Art. 92.0Biphasic Fem Art Prox. 120.0TriphasicFem Art Prox. 93.0Triphasic Fem Art Mid. 101.0TriphasicFem Art Mid. 98.0Triphasic Fem Art Dist. 73.0TriphasicFem Art Dist. 114.0Triphasic Pop Art(Fossa) 61.0TriphasicPop Art(AK) 69.0Triphasic CNC LASER OPERATOR Prox. 111.0TriphasicPTA Prox. 123.0Triphasic CNC LASER OPERATOR Dist. 84.0TriphasicPTA Dist. 73.0Triphasic Per Art Mid. 98.0TriphasicPer Art Mid. 117.0Triphasic LAUREN Prox. 50.0TriphasicATA Prox. 67.0Biphasic DPA 16MonophasicDPA 75Monophasic Findings Grayscale images of peripheral arteries bilateral lower extremities showed mild diffuse atheroscleros is. Spectral waveform and color duplex analysis showed normal velocities in all the peripheral arter ies bilaterally. The waveforms in the common femoral arteries were triphasic, the deep femoral arter ies biphasic and in superficial femoral and popliteals arteries, it was triphasic. Patient had three -vessel runoff below the knee with normal velocities and triphasic waveforms. No significant stenosi s was noted. Critical Notification Critical Value: No <Conclusion> Lower extremity arterial duplex scan did not show any significant peripheral artery stenosis. Signed by : Ruma Rucker, Electronically Approved : 01/07/2022 11:43:06
== END ==
LOC: NM 07:51
PROVIDERS: ATTEND Internal Medicine Cardiovascular Disease
DX: I70.203 Unspecified atherosclerosis of native arteries of extremities, bilateral legs (principal); I25.10 Atherosclerotic heart disease of native coronary artery without angina pectoris
CPT/HCPCS: 78452; 93017; 93925; A9500; J2785